=== PATIENT | female | born 1995 | race Caucasian/White ===

== ENCOUNTER 2023-09-17 06:13 | Emergency (ER) | payer BC, SELFPAY ==
[2023-09-17] VITALS (7 sets, daily range): BP systolic 96–134; BP diastolic 48–85; BMI 57.0
--- NOTE | 2023-09-17 06:59 | ED.GENMED ---
History of Present Illness
General
Chief Complaint: Back Pain
Source: patient
Exam Limitations: none
Time Seen by Provider: 09/17/23 06:53
Nursing documentation reviewed up to this point in time: agreed with
Travel History
Have you had any contact with someone who has COVID-19?: No
Do you have any symptoms of coronavirus? Fever > 100 degrees, chills, cough, shortness of breath, sore throat, loss of taste or smell, muscle aches, or headache?: No
History of Present Illness
History of Present Illness:
Patient is a 28-year-old female who presents to the emergency department complaining of severe back pain and lower abdominal pain similar to her kidney stones in the past with the last one being 2 years ago. Pain started yesterday. Patient's been
nauseous without vomiting. Patient denies any dysuria, hematuria, urgency or frequency. Patient has an IUD and denies . Patient denies fever or chills. Patient denies chest pain or shortness of breath. Patient denies any recent
illnesses or injuries.
Past History
Past History
ED Past Medical History: Other (Kidney stones)
Social History
Tobacco: Non-smoker
Review of Systems
Review of Systems
All Other Systems: ROS reviewed and negative except as documented in HPI and ROS
Constitutional: Reports chills; Denies fever or fatigue
EENT: Reports no symptoms
Respiratory: Reports no symptoms
Cardiac: Reports no symptoms
ABD/GI: Reports abdominal pain and nausea; Denies vomiting, diarrhea or constipated
: Reports flank pain; Denies dysuria, urgency, bleeding or dark urine
Musculoskeletal: Reports back pain
Skin: Reports no symptoms
Neurological: Reports no symptoms
Hematologic/Lymphatic: Reports no symptoms
Phy Exam
Physical Exam
Physical Exam:
Physical Exam
General: significant distress, alert and appropriate, morbidly obese, well hydrated
HENT: Normocephalic, supple with no lymphadenopathy, no thyromegaly
Eyes: Clear sclera, conjuctiva without injection
Heart: Regular rhythm and rate. No S3, S4. No murmur.
Lungs: No respiratory distress, no stridor, lung sounds clear and equal bilaterally
Abdomen: Soft, mild diffuse lower abdominal tenderness without guarding or rebound, no organomegaly, bilateral CVA tenderness, BS good
Neuro: Alert and oriented x 3, CN II - XII intact, no motor focality, no cerebellar dysfunction
Skin: no rash
Psychiatric: well kept. interactive and cooperative
Extremities: No edema, cyanosis, tenderness
Course
Orders/Labs/Results
Orders:
Orders
09/17/23 06:57
0.9% Sodium Chloride 1000 ml [Nss] 1,000 ml IV BOLUS
HYDROmorphone [Dilaudid] 1 mg IV NOW STA
Ketorolac [Toradol] 15 mg IV NOW STA
Ondansetron Injectable [Zofran] 4 mg IV NOW STA
Test Result ONCE
09/17/23 06:59
CT Abd/pel Without Iv Or Oral Urgent
Comment:
Reason For Exam: back and abd pain hx of kidney stones
09/17/23 07:12
Complete Blood Count/With Diff Urgent
Comprehensive Metabolic Panel Urgent
HCG, Serum Qualitative Screen Urgent
09/17/23 09:25
HYDROmorphone [Dilaudid] 1 mg IV NOW STA
09/17/23 10:50
Tamsulosin [Flomax] 0.4 mg PO NOW STA
09/17/23 10:55
Add On- LAB Urgent
Tests Added?: urinalysis
09/17/23 11:10
Urinalysis Routine
Urine Microscopic Routine
09/17/23 12:01
HYDROmorphone [Dilaudid] 1 mg IV NOW STA
Abnormal Lab Results
09/17/23 09/17/23
07:12 11:10
Absolute Monos (auto) 0.7 H 10^3/uL
(0.1-0.6)
Sodium 133 L mmol/L
(135-145)
Creatinine 0.4 L mg/dL
(0.6-1.0)
Urine Occult Blood 4+ A
(Negative)
Ur Leukocyte Esterase 2+ A
(Negative)
Urine RBC 7-10 A /HPF
(0-2)
Urine WBC 26-30 A /HPF
(0-5)
Urine Bacteria Many A
(Negative)
09/17/23 07:12
09/17/23 07:12
Vital Signs
Initial and Last Documented VS:
Initial Vital Signs
Temp Pulse Resp BP Pulse Ox
97.9 F 84 24 134/85 99
09/17/23 06:17 09/17/23 06:17 09/17/23 06:17 09/17/23 06:17 09/17/23 06:17
Last Documented Vital Signs
Temp Pulse Resp BP Pulse Ox
97.5 F 86 16 115/71 99
09/17/23 12:43 09/17/23 12:43 09/17/23 12:43 09/17/23 12:43 09/17/23 12:43
*Radiology
Radiology exam reviewed: radiology read reviewed
*Pulse Oximetry
Patient hypoxic: no
*EKG
Interpreted by ED Provider?: NA
*Field Professional Interpretation
Rate: Field Professional- N/A
*Critical Care Note
Total Time (30-74mins, 75-104mins- exclusive of procedures): Not Applicable
Update Note
Update Note:
Patient has a 3 mm proximal stone that should pass. Patient will be treated with Toradol, oxycodone, Zofran and Flomax. Urology will follow as an outpatient.
ED Attending Note
-
Portions of this chart may have been created with voice recognition software.� Occasional wrong word or��sound alike� substitutions may have occurred due to the inherent limitations of voice recognition software.
Discharge Plan
Departure
Patient Disposition: Home (Routine Discharge)
Date of Disposition: 09/17/23
Time of Disposition: 12:04
Patient with high blood pressure during this ER visit?: No
Condition: Fair
Covid-19: Not Applicable
Discharge Problem:
Renal colic, Ureterolithiasis
Instructions: Kidney Stones (DC), Renal Colic (DC), How to Strain Your Urine
Prescriptions:
New
ondansetron 8 mg tablet,disintegrating
8 mg PO TID PRN (Reason: nausea and vomiting) Qty: 20 0RF
ketorolac 10 mg tablet
10 mg PO QID PRN (Reason: pain) Qty: 20 0RF
tamsulosin [Flomax] 0.4 mg capsule
0.4 mg PO HS Qty: 10 0RF
oxycodone 5 mg tablet
5 mg PO Q4H PRN (Reason: Pain) Qty: 15 0RF
Referrals:
Clement Winston MD [Active] - Call in 1-3 days for appt
Dena Guerrero CRNP [Family Provider] - As needed
Interventions
Interventions:
*Risk Screen - Suicide Last Done: 09/17/23 07:14
*General Assessment Last Done: 09/17/23 06:17
*Neglect/Abuse Screening Last Done: 09/17/23 07:14
ED- Fall Risk Assessment Last Done: 09/17/23 07:14
*ED COVID-19 Vaccine History Last Done: 09/17/23 06:17
*Nursing Disposition Last Done: 09/17/23 12:43
ED-Musculoskeletal Assessment Last Done: 09/17/23 07:14
Discharge Date and Time
Discharge Date/Time: 09/17/23 12:44
Print Language: THAI
[2023-09-17] MEDS: ZOFRAN 4 MG IV (07:16)
[2023-09-17] MEDS: TORADOL 15 MG IV (07:17)
[2023-09-17] MEDS: DILAUDID 1 MG IV ×3 (07:17→12:21)
[2023-09-17] MEDS: NSS 1000 IV (07:18)
[2023-09-17 07:26] LABS: % Basophils 0.3 % (0-2); % Immature Granulocytes 0.4 % (0-0.5); % Lymphocytes 21.8 % (20.5-51.1); % Monocytes 7.3 % (1.7-9.3); % Neutrophils 67.2 % (42.2-75.2); Absolute Eosinophils 0.3 10^3/uL (0-0.7); Absolute Lymphocytes 2.1 10^3/uL (1.2-3.4); Absolute Monocytes 0.7 10^3/uL (0.1-0.6); Absolute Neutrophils 6.5 10^3/uL (1.4-6.5); Hematocrit 38.3 % (37.0-47.0); Hemoglobin 12.8 g/dL (12.0-16.0); Mean Corp Hgb Conc. 33.4 g/dL (33.0-37.0); Mean Corpuscular Hgb 27.7 pg (27.0-31.0); Mean Corpuscular Volume 82.9 fL (81.0-99.0); Mean Platelet Volume 8.6 fL (7.4-10.4); Nucleated Red Blood Cells % 0 %; Platelet Count 272 10^3/uL (130-400); Red Blood Cell Count 4.62 10^6/uL (4.20-5.40); White Blood Cell Count 9.7 10^3/uL (4.8-10.8)
[2023-09-17 07:43] LABS: ALT (SGPT) 31 U/L (0-35); AST (SGOT) 36 U/L (14-36); Albumin 3.8 g/dl (3.5-5.0); Alkaline Phosphatase 122 U/L (38-126); Blood Urea Nitrogen 7 mg/dl (7-17); Calcium 9.9 mg/dl (8.4-10.2); Carbon Dioxide 22 mmol/L (22-30); Chloride 106 mmol/L (98-107); Estimated Creatinine Clearance > 125 ml/min; Glucose 91 mg/dl (70-99); Sodium 133 mmol/L (135-145); Total Bilirubin 0.9 mg/dl (0.2-1.3); Total Protein 6.7 g/dl (6.3-8.2); eGFR > 60.00
[2023-09-17 07:49] LABS: HCG, Serum Qualitative Screen Negative
--- NOTE | 2023-09-17 10:59 | EDRN ---
the pt is resting in stretcher in the lowest position, side rails up x1, HOB elevated, no s/s of distress, no c/o pain, will continue to monitor the pt closely
[2023-09-17 11:24] LABS: Urine Albumin Negative (Neg - Trace); Urine Bilirubin Negative (Negative); Urine Character Slightly Cloudy (Clear); Urine Color Yellow; Urine Glucose Negative (Negative); Urine Ketone Negative (Negative); Urine Leukocyte 2+ (Negative); Urine Nitrite Negative (Negative); Urine Occult Blood 4+ (Negative); Urine Urobilinogen Negative (Neg - 1+)
[2023-09-17] MEDS: FLOMAX 0.400000000000000022 MG PO (12:21)
[2023-09-17 12:47] LABS: Urine Bacteria Many (Negative); Urine White Cell 26-30 /HPF (0-5)
== END 2023-09-17 12:44 | disposition home or self-care (01) ==
LOC: EMR 06:13
PROVIDERS: EMERGENCY PHYSICIAN Emergency Medicine; FAMILY PHYSICIAN Nurse Practitioner
DX: N20.1 Calculus of ureter (principal)
CPT/HCPCS: 99284; 96374; 96375 ×2; 96361; 96376 ×2; 74176; 80053; 81003; 81015; 84703; 85025

== ENCOUNTER 2023-09-18 23:42 | Inpatient (IN) | payer BC, SELFPAY ==
[2023-09-18 19:19] VITALS: BP 148/100
[2023-09-18 19:34] LABS: % Basophils 0.2 % (0-2); % Eosinophils 2.5 % (0-6); % Immature Granulocytes 0.3 % (0-0.5); % Lymphocytes 27.8 % (20.5-51.1); % Monocytes 7.5 % (1.7-9.3); % Neutrophils 61.7 % (42.2-75.2); Absolute Eosinophils 0.2 10^3/uL (0-0.7); Absolute Lymphocytes 2.7 10^3/uL (1.2-3.4); Absolute Monocytes 0.7 10^3/uL (0.1-0.6); Hematocrit 37.1 % (37.0-47.0); Hemoglobin 12.5 g/dL (12.0-16.0); Mean Corp Hgb Conc. 33.7 g/dL (33.0-37.0); Mean Corpuscular Hgb 27.5 pg (27.0-31.0); Mean Corpuscular Volume 81.5 fL (81.0-99.0); Mean Platelet Volume 8.5 fL (7.4-10.4); Nucleated Red Blood Cells % 0 %; Platelet Count 283 10^3/uL (130-400); Red Blood Cell Count 4.55 10^6/uL (4.20-5.40); Red Cell Dist. Width 13.1 % (11.5-14.5); White Blood Cell Count 9.7 10^3/uL (4.8-10.8)
--- NOTE | 2023-09-18 19:46 | ED.GENMED ---
History of Present Illness
General
Chief Complaint: Flank Pain
Source: patient
Exam Limitations: none
Time Seen by Provider: 09/18/23 19:42
Nursing documentation reviewed up to this point in time: agreed with
Travel History
Have you had any contact with someone who has COVID-19?: No
Do you have any symptoms of coronavirus? Fever > 100 degrees, chills, cough, shortness of breath, sore throat, loss of taste or smell, muscle aches, or headache?: No
History of Present Illness
History of Present Illness:
28 y/o F with h/o kidney stone previously and was here yesterday wth b/l flank pain/abdominal pain and was diagnosed with a R proximal UPJ stone 3 mm
d/c with pain meds, flomax, toradol, oxycodone, zofran
pt has been having pain incresing throughout the day
she thinks she took 2-3 dose of oxy and 2 doses of toradol
has not passed the stone
has pressure and burning with urination
no fever, chill, vomiting, lethargy
pt is writhing in pain
Past History
Past History
ED Past Medical History: Other (Kidney stones)
Social History
Tobacco: Non-smoker
Review of Systems
Review of Systems
Allergies reviewed?: Yes
All Other Systems: Not applicable
Phy Exam
Physical Exam
Physical Exam:
GENERAL: Alert, uncomfortable, writhing, yelling out in pain
Neck: supple
CARDIAC: Regular rate and rhythm .
LUNGS: Clear breath sounds bilaterally, no acute respiratory distress, no wheezes/rales/rhonchi
ABDOMEN:obese, soft, diffusely tender
b/l cvat tnedneress
NEUROLOGICAL: Alert and oriented, no focal neuro deficits
SKIN: Warm and dry, skin intact.
PSYCH: Normal and appropriate interaction.
Course
Orders/Labs/Results
Orders:
Orders
09/18/23 Dinner
Regular
At Your Request: Full Participation
09/18/23 19:27
Complete Blood Count/With Diff Urgent
Comprehensive Metabolic Panel Urgent
09/18/23 19:50
0.9% Sodium Chloride 1000 ml [Nss] 1,000 ml IV BOLUS
HYDROmorphone [Dilaudid] 1 mg IV NOW STA
Ketorolac [Toradol] 15 mg IV NOW STA
09/18/23 19:51
CT Abd/pel Without Iv Or Oral Urgent
Comment:
Reason For Exam: R kidney ston but now b/l flank pain
09/18/23 20:35
HYDROmorphone [Dilaudid] 1 mg IV NOW STA
09/18/23 21:35
HYDROmorphone [Dilaudid] 1 mg .ROUTE .STK-MED ONE
09/18/23 23:04
CefTRIAXone [Rocephin] 1,000 mg IV NOW STA
09/18/23 23:05
Morphine Sulfate 4 mg IV NOW STA
09/18/23 23:16
Admit/Transfer Patient As Directed
Co-Sign Provider:
Level of Care: Inpatient admission
Assign to:: Medical/Surgical
Physician / Group: aurelia
Diagnosis: obstructive nephrolithiasis
Reason for Hospitalization: obstructive nephrolithiasis
Expected length of stay greater than two midnights?: Yes
ELOS- Estimated Length of Stay in days: 2
I certify the patient meets the requirements for IP care: Yes
09/18/23 23:17
Code Status As Directed
Resuscitation Status: Full Code
09/18/23 23:19
UROLOGY CONSULT Routine
Consulting Provider: Carlos Nevarez
Was physician already notified: Yes
09/18/23 23:21
Urinalysis Reflex To Culture Urgent
Date Specimen was Collected: 09/18/23
Time Specimen was Collected: 23:05
Urine Microscopic Reflex Cult Urgent
Urine Culture Urgent
BOLA Source: U
Specimen Description:
Date Specimen was Collected: 09/18/23
Time Specimen was Collected: 23:05
09/18/23 23:55
0.9% Sodium Chloride 1000 ml [Nss] 1,000 ml IV 120 mls/hr
HYDROmorphone [Dilaudid] 0.5 mg IV Q4HPRN PRN
HydrOXYZINE [Atarax] 10 mg PO TID PRN
Ketorolac [Toradol] 10 mg IV Q6HPRN PRN
Ondansetron Injectable [Zofran] 4 mg IV Q6HPRN PRN
09/18/23 23:55
Activity As Directed
Activity Level: As Tolerated
Pneumatic Compression Sleeves As Directed
Type: Knee high
Vital Signs As Directed
Frequency: Per unit guidelines
DX Deep Vein Thrombosis Video Routine
09/19/23 Breakfast
NPO
Allow oral meds: Yes
Allow clear liquids: Sips of Clears
Complete Blood Count/With Diff IN AM
Comprehensive Metabolic Panel IN AM
09/19/23 08:00
Bupropion(24Hr)Extended Releas [WELLBUTRIN XL (24 hour extended release)] 150 mg PO DAILY
Ferrous Sulfate [Feosol] 650 mg PO DAILY
Multivitamin [Theragran] 1 tablet PO DAILY
Sertraline HCl [Zoloft] 200 mg PO DAILY
09/19/23 22:00
CefTRIAXone [Rocephin] 1,000 mg IV Q24H
Prazosin HCl [Minipress] 2 mg PO HS
Sterile Water [Sterile Water For Injection] 10 ml IV Q24H
Tamsulosin [Flomax] 0.4 mg PO HS
Abnormal Lab Results
04/01/24 04/01/24
19:27 23:21
Absolute Monos (auto) 0.7 H 10^3/uL
(0.1-0.6)
Sodium 134 L mmol/L
(135-145)
Chloride 109 H mmol/L
(98-107)
Carbon Dioxide 19 L mmol/L
(22-30)
Alkaline Phosphatase 136 H U/L
(38-126)
Urine Ketones Trace A
(Negative)
Ur Occult Blood Reflex 1+ A
(Negative)
Leukocyte Esterase Rfl 2+ A
(Negative)
Urine WBC (Reflex) >100 A /HPF
(0-5)
Urine Bacteria (Reflex) Many A
(Negative)
09/18/23 19:27
09/18/23 19:27
Vital Signs
Initial and Last Documented VS:
Initial Vital Signs
Temp Pulse Resp BP Pulse Ox
97.7 F 92 16 148/100 98
09/18/23 19:19 09/18/23 19:19 09/18/23 19:19 09/18/23 19:19 09/18/23 19:19
Last Documented Vital Signs
Temp Pulse Resp BP Pulse Ox
99.1 F 89 16 112/63 98
09/18/23 23:18 09/18/23 23:18 09/18/23 19:19 09/18/23 23:18 09/18/23 23:18
MDM/Problems Addressed
Differential Diagnosis Includes:
flank pain, renal colic, infected stone
MDM/Problems Addressed:
28 y/o F yesterday seen for abd/back pain, ct showing R sided prox UPJ 3 mm stone, urine from yesterday with wbc, bacteria; wbc normal, bp stable, no fever;d/c yesterday with oral toradol, oxy, flomax, zofran and was uncomfortable requiring multiple
doses IV pain meds; ct is unchanged from yesterday; urologist dr. nevarez aware.
iv abx given.
*Critical Care Note
Total Time (30-74mins, 75-104mins- exclusive of procedures): Not Applicable
ED Attending Note
-
Portions of this chart may have been created with voice recognition software.� Occasional wrong word or��sound alike� substitutions may have occurred due to the inherent limitations of voice recognition software.
Discharge Plan
Departure
Patient Disposition: Admit
Date of Disposition: 09/18/23
Time of Disposition: 23:03
Admit to: Med/Surg
Presentation/result/management discussed w/ accepting MD/DO: Hospitalist
Covid-19: Not Applicable
Discharge Problem:
Ureterolithiasis
Interventions
Interventions:
*Risk Screen - Suicide Last Done: 09/18/23 23:23
*General Assessment Last Done: 09/18/23 23:23
*Neglect/Abuse Screening Last Done: 09/18/23 23:23
*ED COVID-19 Vaccine History Last Done: 09/18/23 19:19
LE-Kuazjp-Bjedtxkqyy Assessment Last Done: 09/18/23 22:29
ED-Female Genitourinary Assessment Last Done: 09/18/23 23:23
[2023-09-18 19:52] LABS: ALT (SGPT) 28 U/L (0-35); AST (SGOT) 33 U/L (14-36); Albumin 3.8 g/dl (3.5-5.0); Alkaline Phosphatase 136 U/L (38-126); Blood Urea Nitrogen 11 mg/dl (7-17); Carbon Dioxide 19 mmol/L (22-30); Chloride 109 mmol/L (98-107); Glucose 95 mg/dl (70-99); Potassium 4.3 mmol/L (3.5-5.1); Sodium 134 mmol/L (135-145); Total Bilirubin 0.6 mg/dl (0.2-1.3); Total Protein 6.6 g/dl (6.3-8.2); eGFR > 60.00
[2023-09-18] MEDS: DILAUDID 1 MG IV ×2 (20:22→20:42)
[2023-09-18] MEDS: TORADOL 15 MG IV (20:22)
[2023-09-18] MEDS: NSS 1000 IV (20:27)
[2023-09-18 20:44] VITALS: BMI 59.5
[2023-09-18 21:00] VITALS: BP 110/64
[2023-09-18] MEDS: MORPHINE SULFATE 4 MG IV (23:15)
[2023-09-18] MEDS: ROCEPHIN 1000 MG IV (23:15)
[2023-09-18 23:18] VITALS: BP 112/63
--- NOTE | 2023-09-18 23:20 | HPS.HSE ---
Family Physician
-
Family Physician: CARLOS Wilhelm
Chief Complaint
-
right flank pain
History of Present Illness
28-year-old female with past medical history of kidney stones, anxiety/depression presented to emergency room for severe right lower back pain radiating down to her right groin similar to kidney stones in the past, last being 2 years ago. Pain
started 2 days ago. She had nausea without vomiting. She did have burning with urination.. No fevers or chills. No chest pain or shortness of breath. She came to the emergency room yesterday and was found to have 3 mm calculus in the right
uteropelvic junction. She was given IV fluids and pain control, tamsulosin and discharged home.
She states last time 2 years ago she had a 6 mm stone that took a month to pass on its own.
She is back in for similar symptoms today.
Denies smoking alcohol.
Medical History
Past Medical History
Past Medical History: Reports Other (kidney stones, anxiety/depression)
Past Surgical History: Reports None
Social History
Tobacco: Non-smoker
Alcohol: None
Drug: None
Family History
Family History: Not pertinent
Allergies / Home Medications
Allergies reflects when Allergies were last updated in [facility].
Home Medications with original date entered in [facility]
Allergy/Medication List:
Allergies
Allergy/AdvReac Type Severity Reaction Status Date / Time
No Known Allergies Allergy Verified 09/18/23 19:21
Home Medications
ondansetron 8 mg disintegrating tablet 8 mg PO TID PRN nausea and vomiting #20 tabs 09/17/23
tamsulosin 0.4 mg capsule (Flomax) 0.4 mg PO HS #10 caps 09/17/23
bupropion HCl 150 mg 24 hr tablet, extended release 150 mg PO DAILY 09/18/23
ferrous sulfate 325 mg (65 mg iron) tablet 650 mg PO DAILY 09/18/23
hydroxyzine HCl 10 mg tablet 10 mg PO TID PRN anxiety 09/18/23
ketorolac 10 mg tablet 10 mg PO QID PRN mild pain 09/18/23
multivitamin 1 tab PO DAILY 09/18/23
oxycodone 5 mg tablet 5 mg PO Q4H PRN Moderate Pain 09/18/23
prazosin 2 mg capsule 2 mg PO HS 09/18/23
sertraline 100 mg tablet 200 mg PO DAILY 09/18/23
Review of Systems
-
History Source: Patient
A 12 point ROS was completed and negative except as noted: Yes
Constitutional: Reports No Symptoms
EENT: Reports No Symptoms
Respiratory: Reports No Symptoms
Cardiac: Reports No Symptoms
Abdomen/GI: Reports See HPI
: Reports See HPI
Musculoskeletal: Reports No Symptoms
Skin: Reports No Symptoms
Neurological: Reports No Symptoms
Endocrine: Reports No Symptoms
Hematologic/Lymphatic: Reports No Symptoms
Psych: Reports No Symptoms
Physical Exam
Vital Signs
Vital Signs
Temp Pulse Resp BP Pulse Ox
97.7 F 79 16 110/64 97
09/18/23 19:19 09/18/23 22:55 09/18/23 19:19 09/18/23 21:00 09/18/23 22:55
Physical Exam
General: Well Developed, Well Nourished and No Apparent Distress
HEENT: NormoCephalic, Moist mucous membranes and Atraumatic
Respiratory: Clear
Cardiac: S1/S2 and Regular Rhythm; No Murmur or Rub
GI: Soft, Non Tender, Non Distended and Normal Bowel Sounds; No Organomegaly
Rectal: Deferred by Provider
Genito-urinary: Costovertebral angle tend (right CVA tenderness )
Musculoskeletal: No Clubbing, No Cyanosis and No Edema
Skin: No Rash
Neuro: Nonfocal/grossly intact
Laboratory Results
-
09/18/23 19:27
09/18/23 19:27
Laboratory Results
Total Bilirubin 0.6 mg/dl (0.2-1.3) 09/18/23 19:27
AST 33 U/L (14-36) 09/18/23 19:27
ALT 28 U/L (0-35) 09/18/23 19:27
Alkaline Phosphatase 136 U/L (38-126) H 09/18/23 19:27
Data Reviewed
-
Lab Data: Labs Reviewed by me
Old Records: Reviewed
Impression/Plan
-
IMPRESSION:
PLAN:
# Right ureteropelvic junction 3 mm calculus
# History of kidney stones
-CT today unchanged from yesterday which showed 3 mm calculus at the right ureteropelvic junction, slight distention of the renal pelvis without significant caliectasis
-IV fluids
-Continue tamsulosin
-Urinalysis from yesterday suggesting infection, rechecking today
-Zofran for nausea
-Toradol, Dilaudid for pain
-Ceftriaxone
-N.p.o. past midnight
-Urology consult
Anxiety/depression
-Continue bupropion, prazosin, sertraline
Full code
DVT prophylaxis�SCDs
N.p.o. past midnight
[2023-09-18 23:35] LABS: Urine Albumin Trace (Neg - Trace); Urine Bilirubin Negative (Negative); Urine Character Slightly Cloudy (Clear); Urine Color Yellow; Urine Glucose Negative (Negative); Urine Ketone Trace (Negative); Urine Leukocyte 2+ (Negative); Urine Nitrite Negative (Negative); Urine Occult Blood 1+ (Negative); Urine Urobilinogen Negative (Neg - 1+)
[2023-09-18 23:42] VITALS: BMI 59.5
[2023-09-19] LABS: Urine Amorphous Seen; Urine Bacteria Many (Negative); Urine Mucus Moderate; Urine Squamous Cell >30 /LPF (Few); Urine White Cell >100 /HPF (0-5)
[2023-09-19] MEDS: NSS 1000 IV ×3 (00:08→17:06)
[2023-09-19] MEDS: DILAUDID 0.5 MG IV ×5 (02:27→19:55)
[2023-09-19 03:55] VITALS: BP 122/78
[2023-09-19] MEDS: TORADOL 10 MG IV (05:55)
[2023-09-19 06:23] LABS: % Basophils 0.3 % (0-2); % Eosinophils 3.8 % (0-6); % Immature Granulocytes 0.5 % (0-0.5); % Lymphocytes 32.1 % (20.5-51.1); % Monocytes 7.5 % (1.7-9.3); % Neutrophils 55.8 % (42.2-75.2); Absolute Eosinophils 0.2 10^3/uL (0-0.7); Absolute Monocytes 0.5 10^3/uL (0.1-0.6); Absolute Neutrophils 3.5 10^3/uL (1.4-6.5); Hematocrit 34.2 % (37.0-47.0); Hemoglobin 11.2 g/dL (12.0-16.0); Mean Corp Hgb Conc. 32.7 g/dL (33.0-37.0); Mean Corpuscular Hgb 27.9 pg (27.0-31.0); Mean Corpuscular Volume 85.3 fL (81.0-99.0); Mean Platelet Volume 8.7 fL (7.4-10.4); Nucleated Red Blood Cells % 0 %; Platelet Count 233 10^3/uL (130-400); Red Blood Cell Count 4.01 10^6/uL (4.20-5.40); Red Cell Dist. Width 13.1 % (11.5-14.5); White Blood Cell Count 6.2 10^3/uL (4.8-10.8)
[2023-09-19 06:53] LABS: ALT (SGPT) 24 U/L (0-35); AST (SGOT) 30 U/L (14-36); Alkaline Phosphatase 106 U/L (38-126); Blood Urea Nitrogen 10 mg/dl (7-17); Carbon Dioxide 23 mmol/L (22-30); Chloride 112 mmol/L (98-107); Estimated Creatinine Clearance > 125 ml/min; Glucose 98 mg/dl (70-99); Potassium 3.9 mmol/L (3.5-5.1); Sodium 136 mmol/L (135-145); Total Bilirubin 0.4 mg/dl (0.2-1.3); Total Protein 5.5 g/dl (6.3-8.2); eGFR > 60.00
[2023-09-19 07:01] VITALS: BP 126/62
--- NOTE | 2023-09-19 07:30 | CONS.URO ---
Consultation
-
Date/Time Consultation Performed: 09/19/23 0650
Performing Provider: Erlin Crowder
Reason for Consultation: right ureteral stone
Medical History
History of Present Illness
Right-sided abdominal pain started 2 days ago with nausea, without vomiting. No fevers or chills. She came to the ED on 09/17/23: CT demonstrated a 5-6 mm calculus at the right uteropelvic junction. She was given IV fluids and pain control,
tamsulosin then discharged home. She returned during the late evening of 09/18/23 due to intractable pain. She has been admitted to hospitalists' service
Past Medical History
Past Medical History: Psychiatric (anxiety-depression) and Other (morbid obesity; kidney stone -- spontaneously passed 5 mm stone ~ 2 years ago)
Past Surgical History: None
Family History
Family History: Reviewed & Not Pertinent
Allergies/Home Medications
Allergies
Allergy/AdvReac Type Severity Reaction Status Date / Time
No Known Allergies Allergy Verified 09/18/23 19:21
Home Medications
�Medication �Instructions �Recorded �Confirmed �Type
ondansetron 8 mg disintegrating 8 mg PO TID PRN nausea and 09/17/23 09/18/23 Rx
tablet vomiting #20 tabs
tamsulosin 0.4 mg capsule (Flomax) 0.4 mg PO HS #10 caps 09/17/23 09/18/23 Rx
bupropion HCl 150 mg 24 hr tablet, 150 mg PO DAILY 09/18/23 09/18/23 History
extended release
ferrous sulfate 325 mg (65 mg 650 mg PO DAILY 09/18/23 09/18/23 History
iron) tablet
hydroxyzine HCl 10 mg tablet 10 mg PO TID PRN anxiety 09/18/23 09/18/23 History
ketorolac 10 mg tablet 10 mg PO QID PRN mild pain 09/18/23 09/18/23 History
multivitamin 1 tab PO DAILY 09/18/23 09/18/23 History
oxycodone 5 mg tablet 5 mg PO Q4H PRN Moderate Pain 09/18/23 09/18/23 History
prazosin 2 mg capsule 2 mg PO HS 09/18/23 09/18/23 History
sertraline 100 mg tablet 200 mg PO DAILY 09/18/23 09/18/23 History
Physical Exam
Vital Signs
Vital Signs
Temp Pulse Resp BP Pulse Ox
98.2 F 63 16 126/62 100
09/19/23 07:01 09/19/23 07:01 09/19/23 07:01 09/19/23 07:01 09/19/23 07:01
Lab / Testing Results
Laboratory Results
09/19/23 06:00
09/19/23 06:00
Physical Exam
General: No Apparent Distress and Other (morbidly obese)
HEENT: Normocephalic
Genito-urinary: No Costovertebral Tend
Skin: Warm
Neuro: Awake and Alert
Psych: Calm
Assessment / Plan
-
Right Ureteral Calculus: 5-6 mm, proximal; left renal stone -- 3 mm
Posted for OR 4/3 during AM
Data Reviewed
-
CT Scan: Image personally visualized and interpreted
Lab Data: Labs Reviewed
Old Records: Reviewed
[2023-09-19] MEDS: WELLBUTRIN XL (24 hour extended release) 150 MG PO (08:48)
[2023-09-19] MEDS: FEOSOL 650 MG PO (08:48)
[2023-09-19] MEDS: THERAGRAN 1 TABLET PO (08:48)
[2023-09-19] MEDS: ZOLOFT 200 MG PO (08:49)
--- NOTE | 2023-09-19 10:56 | W.PN.HOSP.TC ---
Today's Communication/Plan
-
monitor vitals
see plan
cw CFTX
follow urine cx
IVF
pain control
NPO tomorrow for OR by urology
Assessment / Plan
Assessment / Plan
General: Well Developed, Well Nourished and No Apparent Distress
HEENT: NormoCephalic, Moist mucous membranes and Atraumatic
Respiratory: Clear
Cardiac: S1/S2 and Regular Rhythm
GI: Soft, Non Tender, Non Distended and Normal Bowel Sounds; No Organomegaly
Genito-urinary: Costovertebral angle tend (right CVA tenderness )
Musculoskeletal: No Clubbing, No Cyanosis and No Edema
Neuro: Nonfocal/grossly intact
Right ureteropelvic junction 3 mm calculus
Associated UTI 2/2 stone
# History of kidney stones
-CT showed 3 mm calculus at the right ureteropelvic junction, slight distention of the renal pelvis without significant caliectasis
-IV fluids
-Continue tamsulosin
-Urinalysis from yesterday suggesting infection, rechecking today
-Zofran for nausea
-pain control
-Ceftriaxone; follow urine cx
-N.p.o. past midnight
-Urology following; plan for OR 4/3
Anxiety/depression
-Continue bupropion, prazosin, sertraline
Full code
DVT prophylaxis�SCDs
Anticipated Discharge: 24 - 48 hours
Subjective/Interval History
-
Date of Service: September 19, 2023
Does have right flank pain
Objective Data
-
Labs:
Laboratory Results
09/19/23
06:00
WBC 6.2
Hgb 11.2 L
Hct 34.2 L
Plt Count 233
Sodium 136
Potassium 3.9
Chloride 112 H
Carbon Dioxide 23
BUN 10
Creatinine 0.6
Glucose 98
Calcium 9.0
Total Bilirubin 0.4
AST 30
ALT 24
Alkaline Phosphatase 106
Vital Signs:
Vital Signs
Temp Pulse Resp BP Pulse Ox
98.2 F 63 16 126/62 100
09/19/23 07:01 09/19/23 07:01 09/19/23 07:01 09/19/23 07:01 09/19/23 07:01
[2023-09-19] MEDS: TORADOL 15 MG IV ×3 (12:06→23:36)
[2023-09-19 15:16] VITALS: BP 119/69; BMI 58.2
--- NOTE | 2023-09-19 15:19 | CM ---
CM met with patient in room. Patient confirmed demographics. Patient had a history of VN for post- check. Patient denies history of SNF or VN. Patient uses [facility] for medication services. Patient is active with her PCP>
PLAN: Home no needs.
--- NOTE | 2023-09-19 16:04 | PTCARENOTE ---
Arrived to unit and ambulated to room. Oriented to room. Call barnes within reach.
[2023-09-19] MEDS: LOVENOX 40 MG SC (17:05)
[2023-09-19] MEDS: ZOFRAN 4 MG IV (20:54)
[2023-09-19] MEDS: MINIPRESS 2 MG PO (21:12)
[2023-09-19] MEDS: FLOMAX 0.400000000000000022 MG PO (21:12)
[2023-09-19] MEDS: STERILE WATER FOR INJECTION 10 ML IV (21:20)
[2023-09-19] MEDS: ROCEPHIN 1000 MG IV (21:20)
[2023-09-19 23:55] VITALS: BP 134/65
[2023-09-20] VITALS (13 sets, daily range): BP systolic 119–149; BP diastolic 67–83
[2023-09-20] MEDS: DILAUDID 0.5 MG IV ×5 (03:22→18:35)
[2023-09-20] MEDS: ZOFRAN 4 MG IV ×2 (03:27→11:48)
[2023-09-20] MEDS: TORADOL 15 MG IV (05:19)
[2023-09-20 06:01] LABS: % Basophils 0.4 % (0-2); % Eosinophils 3.6 % (0-6); % Immature Granulocytes 0.4 % (0-0.5); % Lymphocytes 35.3 % (20.5-51.1); % Monocytes 7.6 % (1.7-9.3); % Neutrophils 52.7 % (42.2-75.2); Absolute Eosinophils 0.2 10^3/uL (0-0.7); Absolute Monocytes 0.4 10^3/uL (0.1-0.6); Absolute Neutrophils 2.9 10^3/uL (1.4-6.5); Hematocrit 37.3 % (37.0-47.0); Hemoglobin 11.6 g/dL (12.0-16.0); Mean Corp Hgb Conc. 31.1 g/dL (33.0-37.0); Mean Corpuscular Hgb 27.1 pg (27.0-31.0); Mean Corpuscular Volume 87.1 fL (81.0-99.0); Mean Platelet Volume 8.7 fL (7.4-10.4); Nucleated Red Blood Cells % 0 %; Platelet Count 234 10^3/uL (130-400); Red Blood Cell Count 4.28 10^6/uL (4.20-5.40); Red Cell Dist. Width 13.3 % (11.5-14.5); White Blood Cell Count 5.6 10^3/uL (4.8-10.8)
[2023-09-20 06:34] LABS: Blood Urea Nitrogen 10 mg/dl (7-17); Calcium 9.3 mg/dl (8.4-10.2); Carbon Dioxide 22 mmol/L (22-30); Chloride 108 mmol/L (98-107); Estimated Creatinine Clearance > 125 ml/min; Glucose 84 mg/dl (70-99); Sodium 136 mmol/L (135-145); eGFR > 60.00
[2023-09-20] MEDS: NSS 1000 IV (07:21)
[2023-09-20] MEDS: WELLBUTRIN XL (24 hour extended release) 150 MG PO (07:52)
[2023-09-20] MEDS: THERAGRAN 1 TABLET PO (07:52)
[2023-09-20] MEDS: FEOSOL 650 MG PO (07:52)
[2023-09-20] MEDS: ZOLOFT 200 MG PO (07:53)
--- NOTE | 2023-09-20 11:09 | W.SUR.PREOP ---
Pre-Operative Surgical Note
-
I have examined this patient prior to the performance of the scheduled procedure.
The patient's condition is unchanged from the time of the current History and
Physical and the patient is able to undergo the scheduled procedure.
--- NOTE | 2023-09-20 11:09 | W.IMMPOSTOP ---
Surgical Immed Post Op Note
-
Primary Surgeon: Erlin
Pre-op Diagnosis: Right Ureteral calculus
Post-op Diagnosis: Right Ureteral calculus
Procedure Performed: Right Ureteroscopy, Laser Lithotripsy, Stenting
Anesthesia Type: gen
Specimen / Cultures: none
Estimated Blood Loss: none
Complications: none
Operative Findings: 5-6 mm impacted/obstructing proximal right ureteral stone
Tubes: 4.7 Fr 24 cm JJ right ureteral stent
--- NOTE | 2023-09-20 11:35 | W.PN.HOSP.TC ---
Today's Communication/Plan
-
Await urine culture susceptibility results
urology recs
Restart diet.
Assessment / Plan
Assessment / Plan
General: Well Developed, Well Nourished and No Apparent Distress, morbidly obese
HEENT: NormoCephalic, Moist mucous membranes and Atraumatic
Respiratory: Clear
Cardiac: S1/S2 and Regular Rhythm
GI: Soft, Non Tender, Non Distended and Normal Bowel Sounds; No Organomegaly
Genito-urinary: Costovertebral angle tend (right CVA tenderness )
Musculoskeletal: No Clubbing, No Cyanosis and No Edema
Neuro: Nonfocal/grossly intact
Right ureteropelvic junction 3 mm obstructed renal calculus
Associated E. coli UTI 2/2 stone
# History of kidney stones
-CT showed 3 mm calculus at the right ureteropelvic junction, slight distention of the renal pelvis without significant caliectasis
-IV fluids
-Continue tamsulosin
-Urinalysis from yesterday suggesting infection, rechecking today
-Zofran for nausea
-pain control
-Ceftriaxone; follow urine susceptibility results
-OP finding of impacted/obstructive proximal right ureteral stone. Status post right ureteroscopy, laser lithotripsy and stenting.
Anxiety/depression/PTSD
-Continue bupropion, prazosin, sertraline
Morbid obesity due to excess calories
Plan all aspects of medical care
Full code
DVT prophylaxis�SCDs
Anticipated Discharge: 24 - 48 hours
Subjective/Interval History
-
Date of Service: September 20, 2023
states of flank pain
Objective Data
-
Labs:
Laboratory Results
09/20/23
05:35
WBC 5.6
Hgb 11.6 L
Hct 37.3
Plt Count 234
Sodium 136
Potassium 4.0
Chloride 108 H
Carbon Dioxide 22
BUN 10
Creatinine 0.5 L
Glucose 84
Calcium 9.3
Vital Signs:
Vital Signs
Temp Pulse Resp BP Pulse Ox
97.5 F 85 23 135/67 99
09/20/23 07:05 09/20/23 11:30 09/20/23 11:30 09/20/23 11:17 09/20/23 11:30
I&O
09/19/23 09/20/23 09/21/23
06:59 06:59 06:59
Intake Total 240 / 240
Output Total 700 / 700
Balance -460 / -460
[2023-09-20] MEDS: Pyridium 200 MG PO (11:43)
[2023-09-20] MEDS: TORADOL IV (12:20)
[2023-09-20] MEDS: NSS (PRESERVATIVE FREE) 8 ML IV (12:33)
[2023-09-20] MEDS: PEPCID 20 MG IV (12:33)
--- NOTE | 2023-09-20 13:23 | PTCARENOTE ---
Pt returned from PACU.Report from RN.Pt awake slightly drowsy, Pt VSS 95% on RA. Pt c/o burning in chest describes it as acid refux, given IV Pepcid with relief. Pt OOB to [facility] urinated pink urine, c/o back spasms and pain after standing, given IV
Dilaudid per orders. Pt reoriented to room, at bedside, taking in liquids and tolerating food at this time, plan of care ongoing.
[2023-09-20] MEDS: TORADOL 30 MG IV ×2 (16:48→21:30)
[2023-09-20] MEDS: LOVENOX 40 MG SC (16:53)
[2023-09-20] MEDS: ATARAX 10 MG PO (17:56)
--- NOTE | 2023-09-20 19:19 | PTCARENOTE ---
Pt called RN into room c/o feeling like her heart as racing, numbness in arms, legs, face. Pt c/o abd discomfort and back spasms. Pt very anxious tearful moaning out loudly in room. EKG completed, VSS, Pt given dilaudid per orders and Atarax for
anxiety. Pt still uncomfortable, moaning loudly, tearful. Cross covering MD into evaluate pt. Pt given an extra 0.5mg Dilaudid, Pt requesting something to eat, Pt OOB to [facility] Urinating without difficultly. Pt said pain is more tolerable 1-2, VSS,
Call barnes within reach, plan of care ongoing.
[2023-09-20] MEDS: FLOMAX 0.400000000000000022 MG PO (21:16)
[2023-09-20] MEDS: MINIPRESS 2 MG PO (21:26)
[2023-09-20] MEDS: STERILE WATER FOR INJECTION 10 ML IV (21:27)
[2023-09-20] MEDS: ROCEPHIN 1000 MG IV (21:27)
[2023-09-21 03:08] VITALS: BP 129/82
[2023-09-21] MEDS: TORADOL 30 MG IV ×2 (04:14→10:17)
[2023-09-21] MEDS: ZOFRAN 4 MG IV (05:26)
[2023-09-21 07:30] VITALS: BP 134/67
[2023-09-21] MEDS: FEOSOL 650 MG PO (08:14)
[2023-09-21] MEDS: ZOLOFT 200 MG PO (08:16)
[2023-09-21] MEDS: WELLBUTRIN XL (24 hour extended release) 150 MG PO (08:16)
[2023-09-21] MEDS: THERAGRAN 1 TABLET PO (08:16)
--- NOTE | 2023-09-21 10:36 | W.PN.HOSP.TC ---
Today's Communication/Plan
-
DC with p.o. antibiotics
Outpatient urology follow-up for stent removal
Assessment / Plan
Assessment / Plan
General: Well Developed, Well Nourished and No Apparent Distress, morbidly obese
HEENT: NormoCephalic, Moist mucous membranes and Atraumatic
Respiratory: Clear
Cardiac: S1/S2 and Regular Rhythm
GI: Soft, Non Tender, Non Distended and Normal Bowel Sounds; No Organomegaly
Musculoskeletal: No Clubbing, No Cyanosis and No Edema
Neuro: Nonfocal/grossly intact
Right ureteropelvic junction 3 mm obstructed renal calculus
Associated E. coli UTI 2/2 stone
# History of kidney stones
-CT showed 3 mm calculus at the right ureteropelvic junction, slight distention of the renal pelvis without significant caliectasis
-IV fluids discontinued.
-Continue tamsulosin
-Zofran for nausea
-pain control
-Ceftriaxone; follow urine susceptibility results pansensitive. Switch to p.o. Keflex
-OP finding of impacted/obstructive proximal right ureteral stone. Status post right ureteroscopy, laser lithotripsy and stenting.
Anxiety/depression/PTSD
-Continue bupropion, prazosin, sertraline
Morbid obesity due to excess calories
Plan all aspects of medical care
Full code
DVT prophylaxis�SCDs
More than 30 minutes spent in discharge including
Final examination of the patient
Summarizing hospital stay
Instructions for continuing care to all relevant caregivers
Preparation of discharge records, prescriptions, and referral forms
Total time spent (in minutes): 50
Anticipated Discharge: Today
Subjective/Interval History
-
Date of Service: September 21, 2023
Patient feeling better this morning
Denies any spasms
Hypothyroid progress.
Objective Data
-
Vital Signs:
Vital Signs
Temp Pulse Resp BP Pulse Ox
97.9 F 80 18 134/67 96
09/21/23 07:30 09/21/23 07:30 09/21/23 07:30 09/21/23 07:30 09/21/23 07:30
I&O
09/20/23 09/21/23 09/22/23
06:59 06:59 06:59
Intake Total 240 / 240 2100 / 2100
Output Total 700 / 700 2450 / 2450
Balance -460 / -460 -350 / -350
--- NOTE | 2023-09-21 10:48 | W.DCSUMMARY ---
Discharge Summary
Discharge Data
Date of Admission: 09/18/23
Date of Discharge: 09/21/23
-
Pending Results: No
Hospital Course
28-year-old female past medical history of anxiety, depression, PTSD, morbid obesity due to excess calories was presented with right flank pain. Patient underwent CT abdomen which showed CT showed 3 mm calculus at the right ureteropelvic junction,
slight distention of the renal pelvis without significant caliectasis patient was started on IV fluids. IV antibiotics were started. Patient was evaluated urology and patient went to the operating room. OP finding of impacted/obstructive proximal
right ureteral stone. Status post right ureteroscopy, laser lithotripsy and stenting. Patient urine culture came back positive for E. coli with glover sensitivity. Ceftriaxone was transitioned to p.o. Keflex. Patient will need to follow-up
outpatient for ureteral stent removal.
Discharge Plan
-
Patient Disposition: Home (Routine Discharge)
Discharge Diagnosis/Procedures: Right Ureteral Stone, s/o Ureteroscopy, Laser Lithotripsy and Stenting
E.coli UTI
Condition: Good
Diet: No restrictions and Low Fat
Activity: No restrictions
Driving Restrictions: No driving for 24 hours
Bathing Restrictions: None
Referrals:
Cralos Kern MD [Active] - (call to schedule 'stent removal next Monday [09/28]')
Dena Guerrero CRNP [Family Provider] - in less than 1 week
Prescriptions:
New
cephalexin 500 mg capsule
500 mg PO Q6H 7 Days Qty: 28 0RF
Continued
ondansetron 8 mg tablet,disintegrating
8 mg PO TID PRN (Reason: nausea and vomiting) Qty: 20 0RF
tamsulosin [Flomax] 0.4 mg capsule
0.4 mg PO HS Qty: 10 0RF
sertraline 100 mg tablet
200 mg PO DAILY
hydroxyzine HCl 10 mg tablet
10 mg PO TID PRN (Reason: anxiety)
prazosin 2 mg capsule
2 mg PO HS
bupropion HCl 150 mg tablet extended release 24 hr
150 mg PO DAILY
ketorolac 10 mg tablet
10 mg PO QID PRN (Reason: mild pain)
oxycodone 5 mg tablet
5 mg PO Q4H PRN (Reason: Moderate Pain)
multivitamin Tablet
1 tab PO DAILY
ferrous sulfate 325 mg (65 mg iron) Tablet
650 mg PO DAILY
Discharge Orders:
Discharge Patient (As Directed); Ordered 09/21/23
Ordered By: Joshua Walls
Discharge Date and Time
Print Language: PAP[place]
[2023-09-21] MEDS: TYLENOL 650 MG PO (11:04)
--- NOTE | 2023-09-21 11:10 | W.PN.URO.CBU ---
Today's Communication / Plan
-
home on po abx per medical team
pt to f/u next week for removal of ureteral stent
Assessment / Plan
-
urologically stable
Diagnosis
-
Date of Service: September 21, 2023
-
Patient Diagnosis:
Right Ureteral Stone
E. coli UTI
s/p Right Ureteroscopy, Laser Lithotripsy, Stenting on 09/19
Post Op Day: 1
Subjective
-
less pain
Objective
-
Vital Signs
Temp Pulse Resp BP Pulse Ox
97.9 F 80 18 134/67 96
09/21/23 07:30 09/21/23 07:30 09/21/23 07:30 09/21/23 07:30 09/21/23 07:30
Intake and Output
09/20/23 09/21/23 09/22/23
06:59 06:59 06:59
Intake Total 240 / 240 2100 / 2100
Output Total 700 / 700 2450 / 2450
Balance -460 / -460 -350 / -350
Intake:
Oral fluids 240 / 240 1250 / 1250
IV fluids (Total) 850 / 850
Normosol 250 / 250
Output:
Urine, Voided 700 / 700 2450 / 2450
Other:
Number of approximated MODERATE 1
amounts of urine
Laboratory Results
09/20/23 05:35
09/20/23 05:35
Urine: E. coli
Physical Exam
-
General - well developed, well nourished, no acute distress
Chest - clear bilaterally
Abdomen - soft, non-tender, positive bowel sounds, no CVAT, no incisional pain or distention
Genitalia - normal
Rectal - normal
Skin - warm & dry with no rash
Neuro - AOx3, no motor deficits
Extremities - no clubbing, no cyanosis, no edema
Incision - clean, dry
Dressing - clean, dry, intact
--- NOTE | 2023-09-21 11:20 | CM ---
Patient seen bedside.
Patient for d/c today.
Patient denies home care needs.
Plan: home no needs.
[2023-09-21 11:59] VITALS: BP 109/58
== END 2023-09-21 12:14 | disposition home or self-care (01) | DRG 660 ==
LOC: 4 EAST ACU 23:42
PROVIDERS: Emergency Medicine; Internal Medicine; Physician Assistant; ADMITTING PHYSICIAN Hospitalist; ATTENDING PHYSICIAN Hospitalist; CONSULT PHYSICIAN Specialist; EMERGENCY PHYSICIAN Emergency Medicine; FAMILY PHYSICIAN Nurse Practitioner
PROC: 0TF68ZZ Fragmentation in Right Ureter, Via Natural or Artificial Opening Endoscopic (ICD-10-PCS; 2023-09-20)
PROC: 0T768DZ Dilation of Right Ureter with Intraluminal Device, Via Natural or Artificial Opening Endoscopic (ICD-10-PCS; 2023-09-20)
DX: N20.1 Calculus of ureter (principal); N39.0 Urinary tract infection, site not specified; Z68.43 Body mass index [BMI] 50.0-59.9, adult; M54.50 Low back pain, unspecified; F32.A Depression, unspecified; F43.10 Post-traumatic stress disorder, unspecified; B96.20 Unspecified Escherichia coli [E. coli] as the cause of diseases classified elsewhere; E66.01 Morbid (severe) obesity due to excess calories; Z87.442 Personal history of urinary calculi
CPT/HCPCS: 74018; 74176; 76000; 80048; 80053; 81003; 81015; 85025; 87086; 87088; 87186; 93005; 96374; 96375; 96376; 99285; C1894; C2617

== ENCOUNTER 2024-02-25 15:55 | Emergency (ER) | payer BC, SELFPAY ==
[2024-02-25 15:59] VITALS: BP 151/110
[2024-02-25 16:35] LABS: COVID-19 Antigen Positive (Negative)
[2024-02-25] MEDS: DECADRON 10 MG PO (17:57)
[2024-02-25] MEDS: ProAIR HFA INHALER 2 PUFF INH (17:57)
[2024-02-25 17:59] VITALS: BMI 57.3
[2024-02-25] MEDS: TYLENOL 1000 MG PO (18:00)
[2024-02-25] MEDS: TORADOL 30 MG IM (18:00)
--- NOTE | 2024-02-25 18:17 | ED.GENMED ---
History of Present Illness
General
Chief Complaint: Cold/Flu/URI Symptoms
Source: patient
Exam Limitations: none
Time Seen by Provider: 02/25/24 17:22
Nursing documentation reviewed up to this point in time: agreed with
History of Present Illness
History of Present Illness:
28-year-old female with history as documented presents to the ER for evaluation of flulike illness. Patient reports that for the past 3 days she has had sore throat, runny nose, fatigue, myalgias, subjective fever and chills. She says she has had
a hacking cough with clear sputum production. She says that she has some pain in her chest with coughing. She denies any significant shortness of breath. She has not had any new nausea/vomiting/diarrhea�she reports occasional issues with diarrhea
and nausea on a chronic basis but no worse than usual. She denies any other complaints.
Past History
Past History
ED Past Medical History: Other (Kidney stones)
Social History
Tobacco: Non-smoker
Review of Systems
Review of Systems
All Other Systems: ROS reviewed and negative except as documented in HPI and ROS
Constitutional: Reports fever, fatigue and chills
EENT: Reports sore throat and runny nose
Respiratory: Reports cough; Denies trouble breathing
Cardiac: Reports chest pain; Denies palpitations
ABD/GI: Denies abdominal pain, nausea, vomiting or diarrhea
: Denies flank pain
Musculoskeletal: Reports muscle pain (Myalgias); Denies neck pain or back pain
Neurological: Reports headache
Phy Exam
Physical Exam
Physical Exam:
General: Awake, alert, oriented x3; no acute distress
Head: Normocephalic, atraumatic
Eyes: Conjunctiva normal
Throat: Airway intact, handling secretions, slight erythema of the tonsils and posterior pharynx, midline uvula no edema, no exudate, no palatal petechiae, no vesicles
Neck: Trachea midline, bilateral anterior chain cervical adenopathy
Lungs: Clear to auscultation bilaterally, no wheezing, rales, rhonchi; frequent coughing throughout exam; normal respiratory rate, normal pulse ox on room air
Heart: Mild tachycardia with regular rhythm, no murmurs, gallops, or rubs
Abd: Soft, non distended, nontender
Neuro: No gross deficits
Skin: no rash
Extremities: Warm well-perfused
Scores
Heart Failure Risk
Heart Failure Risk Score: Not Applicable
Heart Score for Chest Pain Patients
STEMI patient?: Not applicable
Withdrawal Assessment of Alcohol
Withdrawal Assessment Completed?: Not applicable
Course
Orders/Labs/Results
Orders:
Orders
02/25/24 16:05
COVID-19 Antigen Urgent
Source: Nasal Swab
Influenza A+B Rapid Molecular Urgent
BOLA Source: Nasal Swab
Specimen Description:
02/25/24 17:27
Acetaminophen [Tylenol] 1,000 mg PO NOW STA
Albuterol [ProAIR HFA INHALER] 2 puff INH R NOW STA
Ketorolac [Toradol] 30 mg IM NOW STA
02/25/24 17:28
Dexamethasone [Decadron] 10 mg PO NOW STA
CR Chest - 2 Views Urgent
Comment:
Reason For Exam: cough, eval for pna
02/25/24 18:13
Amoxicillin 875 mg/Clav 125 mg [Augmentin 875 mg/125 mg] 1 tablet PO NOW STA
Azithromycin [Zithromax] 500 mg PO NOW STA
Abnormal Lab Results
02/25/24
16:05
SARS-CoV-2 Antigen Positive A
(Negative)
Vital Signs
Initial and Last Documented VS:
Initial Vital Signs
Temp Pulse Resp BP Pulse Ox
37.1 C 106 16 151/110 95
02/25/24 15:59 02/25/24 15:59 02/25/24 15:59 02/25/24 15:59 02/25/24 15:59
Last Documented Vital Signs
Temp Pulse Resp BP Pulse Ox
37.1 C 106 16 151/110 95
02/25/24 15:59 02/25/24 15:59 02/25/24 15:59 02/25/24 15:59 02/25/24 15:59
MDM/Problems Addressed
Differential Diagnosis Includes:
Viral syndrome, pneumonia
MDM/Problems Addressed:
28-year-old female presents with flulike illness for the past 3 days. Mild tachycardia and mild hypertension otherwise normal vitals. Notably normal respiratory rate and pulse ox. Physical exam as above. She had a COVID swab sent in triage�this
was positive and I suspect is primary etiology of her symptoms. Given report of productive cough and some mild chest pain with coughing will check chest x-ray to rule out pneumonia. Will treat with steroid and albuterol, Tylenol, Toradol.
Reassess after the above.
Chest x-ray shows mild right upper lobe pneumonia�likely viral in the setting of COVID infection but will cover with antibiotics. No clear indication for admission to the hospital at this point in time she does not appear to be septic, has normal
respiratory rate, normal work of breathing, normal pulse ox. Stable for discharge to follow-up with PCP. She feels comfortable with this plan. Spoke about return precautions all questions answered.
Acute Exacerbation and/or Progression of Chronic Illness:
Acutely hypertensive with no signs or symptoms of hypertensive emergency�no indication for emergent antihypertensive treatment
Acute Exacerbation and/or Progression of Chronic Illness: HTN
*Radiology
Radiology exam reviewed: preliminary read by ED provider and radiology read reviewed
*Pulse Oximetry
Patient hypoxic: no
*Critical Care Note
Total Time (30-74mins, 75-104mins- exclusive of procedures): Not Applicable
Data Reviewed
Source: patient
ED Attending Note
-
Portions of this chart may have been created with voice recognition software.� Occasional wrong word or��sound alike� substitutions may have occurred due to the inherent limitations of voice recognition software.
Discharge Plan
Departure
Patient Disposition: Home (Routine Discharge)
Date of Disposition: 02/25/24
Time of Disposition: 18:21
Patient with high blood pressure during this ER visit?: Yes
Discharge Problem:
COVID-19, Pneumonia
Instructions: Pneumonia in adults, COVID-19 ED
Prescriptions:
New
amoxicillin-pot clavulanate 875-125 mg tablet
1 tab PO BID Qty: 14 0RF
azithromycin [Zithromax] 250 mg tablet
250 mg PO DAILY Qty: 4 0RF
No Action
ondansetron 8 mg tablet,disintegrating
8 mg PO TID PRN (Reason: nausea and vomiting) Qty: 20 0RF
tamsulosin [Flomax] 0.4 mg capsule
0.4 mg PO HS Qty: 10 0RF
sertraline 100 mg tablet
200 mg PO DAILY
hydroxyzine HCl 10 mg tablet
10 mg PO TID PRN (Reason: anxiety)
prazosin 2 mg capsule
2 mg PO HS
bupropion HCl 150 mg tablet extended release 24 hr
150 mg PO DAILY
ketorolac 10 mg tablet
10 mg PO QID PRN (Reason: mild pain)
oxycodone 5 mg tablet
5 mg PO Q4H PRN (Reason: Moderate Pain)
multivitamin Tablet
1 tab PO DAILY
ferrous sulfate 325 mg (65 mg iron) Tablet
650 mg PO DAILY
cephalexin 500 mg capsule
500 mg PO Q6H 7 Days Qty: 28 0RF
Referrals:
Dena Guerrero CRNP [Family Provider] - Call in 1-3 days for appt
Activity Restrictions/Additional Instructions:
Thank you for visiting the Emergency Department at [facility].
1. Please schedule a follow up appointment as directed. Call first thing tomorrow morning to make an appointment.
2. If indicated, please take your medications as instructed and indicated on discharge paperwork.
3. If any of your symptoms do not improve, or persist, or become more severe within 6-12 hours, please return to the emergency department for further care.
4. Please return to the emergency department if you develop a headache, neck pain/stiffness, fever greater than 100.4F, chest pain, shortness of breath, persistent nausea, vomiting, slurred speech, difficulty walking, numbness/tingling, weakness,
signs of infection or any other symptoms that are worrisome to you.
Please call [phone] if you have any questions.
Discharge Date and Time
Print Language: MALAYSIAN
[2024-02-25] MEDS: AUGMENTIN 875 MG/125 MG 1 TABLET PO (18:31)
[2024-02-25] MEDS: ZITHROMAX 500 MG PO (18:31)
[2024-02-25 18:39] VITALS: BP 148/86
== END 2024-02-25 18:41 | disposition home or self-care (01) ==
LOC: EMR 15:55
PROVIDERS: Emergency Medicine; EMERGENCY PHYSICIAN Emergency Medicine; FAMILY PHYSICIAN Nurse Practitioner
DX: U07.1 COVID-19 (principal); J12.82 Pneumonia due to coronavirus disease 2019
CPT/HCPCS: 94640; 96372; 99284; 71046; 87502; 87811

== ENCOUNTER → 2024-04-25 10:52 | Outpatient (REF) | payer BC, SELFPAY | LOC: RAD 10:52 | PROVIDERS: ATTENDING PHYSICIAN Nurse Practitioner | DX: M54.50 Low back pain, unspecified (principal) | CPT/HCPCS: 72110 ==

== ENCOUNTER 2024-04-30 22:04 | Observation (INO) | payer BC, SELFPAY ==
[2024-04-30 16:16] VITALS: BP 138/84
[2024-04-30] MEDS: TORADOL 30 MG IV (17:32)
[2024-04-30] MEDS: NSS 1000 IV ×2 (17:32→23:36)
[2024-04-30] MEDS: ZOFRAN 4 MG IV ×2 (17:32→21:58)
[2024-04-30 17:46] LABS: Urine Albumin Trace (Neg - Trace); Urine Bilirubin Negative (Negative); Urine Character Very Cloudy (Clear); Urine Color Yellow; Urine Glucose Negative (Negative); Urine Ketone Negative (Negative); Urine Leukocyte 1+ (Negative); Urine Nitrite Negative (Negative); Urine Occult Blood Negative (Negative); Urine Specific Gravity 1.025 (<1.030); Urine Urobilinogen Negative (Neg - 1+)
[2024-04-30 17:47] LABS: % Basophils 0.3 % (0-2); % Immature Granulocytes 0.5 % (0-0.5); % Lymphocytes 27.5 % (20.5-51.1); % Monocytes 5.9 % (1.7-9.3); % Neutrophils 63.8 % (42.2-75.2); Absolute Eosinophils 0.2 10^3/uL (0-0.7); Absolute Immature Granulocytes 0.1 10^3/uL (0-0.05); Absolute Lymphocytes 2.9 10^3/uL (1.2-3.4); Absolute Monocytes 0.6 10^3/uL (0.1-0.6); Absolute Neutrophils 6.7 10^3/uL (1.4-6.5); Hematocrit 39.6 % (37.0-47.0); Hemoglobin 13.1 g/dL (12.0-16.0); Mean Corp Hgb Conc. 33.1 g/dL (33.0-37.0); Mean Corpuscular Hgb 27.7 pg (27.0-31.0); Mean Corpuscular Volume 83.7 fL (81.0-99.0); Mean Platelet Volume 8.8 fL (7.4-10.4); Nucleated Red Blood Cells % 0 %; Platelet Count 315 10^3/uL (130-400); Red Blood Cell Count 4.73 10^6/uL (4.20-5.40); Red Cell Dist. Width 12.7 % (11.5-14.5); White Blood Cell Count 10.5 10^3/uL (4.8-10.8)
[2024-04-30 17:49] LABS: HCG, Urine Qualitative Screen Negative
[2024-04-30 17:54] LABS: Urine Bacteria Many (Negative); Urine Red Blood Cell 0-2 /HPF (0-2)
[2024-04-30 17:58] LABS: ALT (SGPT) 28 U/L (0-35); AST (SGOT) 30 U/L (14-36); Albumin 4.3 g/dl (3.5-5.0); Alkaline Phosphatase 99 U/L (38-126); Blood Urea Nitrogen 11 mg/dl (7-17); Calcium 10.8 mg/dl (8.4-10.2); Carbon Dioxide 28 mmol/L (22-30); Chloride 103 mmol/L (98-107); Glucose 129 mg/dl (70-99); Lipase 63 U/L (23-300); Potassium 3.8 mmol/L (3.5-5.1); Sodium 139 mmol/L (135-145); Total Bilirubin 0.5 mg/dl (0.2-1.3); Total Protein 6.9 g/dl (6.3-8.2); eGFR > 60.00
--- NOTE | 2024-04-30 18:44 | ED.GENMED ---
History of Present Illness
General
Chief Complaint: Flank Pain
Time Seen by Provider: 04/30/24 17:06
History of Present Illness
History of Present Illness:
29-year-old female with past medical history of kidney stones presenting to the emergency department for left flank pain. Patient reports symptoms for the past few days, worsened today. Does report some radiation to the abdomen. Notes urinary
frequency without dysuria. Denies fever. Notes history of ureteral stenting in the past. Denies chest pain or difficulty breathing. She has not tried any medications for pain. She feels that her symptoms are consistent with her kidney stone
history. She denies additional acute medical complaints.
Past History
Past History
ED Past Medical History: Other (Kidney stones)
Social History
Tobacco: Non-smoker
Phy Exam
Physical Exam
Physical Exam:
General: Well-appearing, no clinical signs of dehydration, nontoxic and in no acute distress
HEENT: protecting airway
Neck: appears supple
CV: Normal heart rate, regular rhythm
Resp: No accessory muscle use, no increased work of breathing, lungs clear to auscultation bilaterally
Abd: Soft and non-distended, no tenderness to palpation. Left CVA tenderness to palpation
Extremities: No deformities, no swelling, no erythema
Neuro: alert, no focal neurologic deficit
: deferred
Rectal: deferred
Psych: Normal affect
Skin: Intact
Course
Orders/Labs/Results
Orders:
Orders
04/30/24 17:26
0.9% Sodium Chloride 1000 ml [Nss] 1,000 ml IV BOLUS
Ketorolac [Toradol] 30 mg IV NOW STA
Ondansetron Injectable [Zofran] 4 mg IV NOW STA
Test Result ONCE
04/30/24 17:27
CT Abd/pel Without Iv Or Oral Urgent
Comment:
Reason For Exam: L-flank pain, hx stones
04/30/24 17:31
Complete Blood Count/With Diff Urgent
HCG, Urine Qualitative Screen Urgent
Date Specimen was Collected: 04/30/24
Time Specimen was Collected: 17:30
Urinalysis Reflex To Culture Urgent
Date Specimen was Collected: 04/30/24
Time Specimen was Collected: 17:30
Urine Microscopic Reflex Cult Urgent
Urine Culture Urgent
BOLA Source: U
Specimen Description:
Date Specimen was Collected: 04/30/24
Time Specimen was Collected: 17:30
04/30/24 17:32
Comprehensive Metabolic Panel Urgent
Lipase Urgent
04/30/24 19:34
HYDROmorphone [Dilaudid] 1 mg IV NOW STA
Abnormal Lab Results
04/30/24 04/30/24
17:31 17:32
Abs Immat Gran (auto) 0.1 H 10^3/uL
(0-0.05)
Absolute Neuts (auto) 6.7 H 10^3/uL
(1.4-6.5)
Glucose 129 H mg/dl
(70-99)
Calcium 10.8 H mg/dl
(8.4-10.2)
Leukocyte Esterase Rfl 1+ A
(Negative)
Urine WBC (Reflex) 11-15 A /HPF
(0-5)
Urine Bacteria (Reflex) Many A
(Negative)
04/30/24 17:31
04/30/24 17:32
Vital Signs
Initial and Last Documented VS:
Initial Vital Signs
Temp Pulse Resp BP Pulse Ox
98.4 F 104 16 138/84 100
04/30/24 16:16 04/30/24 16:16 04/30/24 16:16 04/30/24 16:16 04/30/24 16:16
Last Documented Vital Signs
Temp Pulse Resp BP Pulse Ox
98.9 F 76 26 133/69 98
04/30/24 19:43 04/30/24 19:43 04/30/24 19:43 04/30/24 19:43 04/30/24 19:49
MDM/Problems Addressed
MDM/Problems Addressed:
29-year-old female with prior history of kidney stones presenting for left-sided flank pain. Vital signs on arrival are significant for mild tachycardia.
On exam, patient in no acute distress, however is comfortable secondary to pain. Benign examination of the abdomen, however does have left CVA tenderness. Ultimately suspect nephrolithiasis. Will obtain laboratory analysis, CT imaging. Toradol
and Zofran administered for patient's symptoms. Will reassess for improvement. At this time, patient nontoxic, afebrile with lower suspicion for infected stone.
20:30 -patient's labs are relatively unremarkable, no leukocytosis. Urine without significant sign of infection, does show some bacteria. Patient continues to complain of pain, so Dilaudid administered with slight improvement. CT shows a
nonobstructing 7.2 mm stone, intrarenal. Plan for for pain control. Did discuss with urology, without concern for emergent treatment of the stone. Observation admission for pain control
*Critical Care Note
Total Time (30-74mins, 75-104mins- exclusive of procedures): Not Applicable
ED Attending Note
-
Portions of this chart may have been created with voice recognition software.� Occasional wrong word or��sound alike� substitutions may have occurred due to the inherent limitations of voice recognition software.
Discharge Plan
Departure
Prescriptions:
No Action
ondansetron 8 mg tablet,disintegrating
8 mg PO TID PRN (Reason: nausea and vomiting) Qty: 20 0RF
tamsulosin [Flomax] 0.4 mg capsule
0.4 mg PO HS Qty: 10 0RF
sertraline 100 mg tablet
200 mg PO DAILY
hydroxyzine HCl 10 mg tablet
10 mg PO TID PRN (Reason: anxiety)
prazosin 2 mg capsule
2 mg PO HS
bupropion HCl 150 mg tablet extended release 24 hr
150 mg PO DAILY
ketorolac 10 mg tablet
10 mg PO QID PRN (Reason: mild pain)
oxycodone 5 mg tablet
5 mg PO Q4H PRN (Reason: Moderate Pain)
multivitamin Tablet
1 tab PO DAILY
ferrous sulfate 325 mg (65 mg iron) Tablet
650 mg PO DAILY
cephalexin 500 mg capsule
500 mg PO Q6H 7 Days Qty: 28 0RF
amoxicillin-pot clavulanate 875-125 mg tablet
1 tab PO BID Qty: 14 0RF
azithromycin [Zithromax] 250 mg tablet
250 mg PO DAILY Qty: 4 0RF
Referrals:
Dena Guerrero CRNP [Family Provider] -
Interventions
Interventions:
*Risk Screen - Suicide Last Done: 04/30/24 16:18
*Neglect/Abuse Screening Last Done: 04/30/24 16:18
ED- Fall Risk Assessment Last Done: 04/30/24 17:35
*ED COVID-19 Vaccine History Last Done: 04/30/24 16:17
SH-Harsxy-Wsbsdsifcx Assessment Last Done: 04/30/24 19:49
ED-Female Genitourinary Assessment Last Done: 04/30/24 17:37
Discharge Date and Time
Print Language: MALAY
[2024-04-30] MEDS: DILAUDID 1 MG IV (19:37)
[2024-04-30 19:43] VITALS: BP 133/69
[2024-04-30 20:53] VITALS: BP 169/95
--- NOTE | 2024-04-30 20:57 | HPS.HSE ---
Family Physician
-
Family Physician: CARLOS Wilhelm
Chief Complaint
-
Left-sided flank pain with urgency
History of Present Illness
29-year-old female with past medical history of renal calculi requiring ureteral stent and removal.. She presents to the ER today complaining of left flank pain with radiation to abdomen over the past few days but worsened today. She also reports
urinary frequency without dysuria. She complains of left flank pain increasing with urination. She denies any sediment. She denies fever, chills, chest pain, palpitations, shortness of breath, cough, nausea, vomiting, diarrhea. She is past
medical history of renal calculi requiring removal and ureteral stenting, migraines, depression, anxiety, PTSD, class III obesity, IUD, 1 para 1.
Medical History
Past Medical History
Past Medical History: Reports Other
Additional Past Medical History:
renal calculi requiring removal and ureteral stenting
migraines
depression
anxiety
PTSD
class III obesity
IUD, 1 para 1
Past Surgical History: Reports Other
Additional Past Surgical History:
renal calculi requiring removal and ureteral stenting
Social History
Tobacco: Non-smoker
Alcohol: Occasional
Personal:
Living: With Family
Family History
Family History: Other (Patient is adopted although states her full blood sister and half-sister have PCOS)
Allergies / Home Medications
Allergies reflects when Allergies were last updated in [facility].
Home Medications with original date entered in [facility]
Allergy/Medication List:
Allergies
Allergy/AdvReac Type Severity Reaction Status Date / Time
No Known Allergies Allergy Verified 04/30/24 16:18
Home Medications
prazosin 2 mg capsule 2 mg PO DAILYPRN PRN nightmares/PTSD 09/18/23
sertraline 100 mg tablet 200 mg PO DAILY depression 09/18/23
albuterol sulfate 90 mcg/actuation aerosol inhaler 2 puff inhalation R Q4HPRN PRN sob/wheezing 04/30/24
cholecalciferol (vitamin D3) 25 mcg (1,000 unit) tablet 25 mcg PO DAILY 04/30/24
cyanocobalamin (vitamin B-12) 1,000 mcg tablet 1,000 mcg PO DAILY 04/30/24
sumatriptan succinate 25 mg tablet 25 mg PO PRN PRN migraine 04/30/24
Review of Systems
-
History Source: Patient
A 12 point ROS was completed and negative except as noted: Yes
Constitutional: Denies Fever, Fatigue or Chills
EENT: Denies Sore Throat or Runny Nose
Respiratory: Denies Cough or Trouble Breathing
Cardiac: Denies Chest Pain, Palpitations or Syncope
Abdomen/GI: Reports Abdominal Pain (Left abdomen/left flank); Denies Nausea or Vomiting
: Reports Frequency; Denies Dysuria, Difficulty Voiding, Urgency or Dark Urine
Musculoskeletal: Denies Joint Pain or Edema
Skin: Denies Itching or Rash
Neurological: Denies Dizzy or Headache
Endocrine: Reports No Symptoms
Hematologic/Lymphatic: Reports No Symptoms
Psych: Reports Calm
Physical Exam
Vital Signs
Vital Signs
Temp Pulse Resp BP Pulse Ox
98.9 F 72 20 169/95 94
04/30/24 19:43 04/30/24 20:53 04/30/24 20:53 04/30/24 20:53 04/30/24 20:53
Physical Exam
General: Conversant and Pain; No Fever or Chills
HEENT: NormoCephalic, Anicteric, Moist mucous membranes, PERRLA, Closter Conjunctivae, No Ptosis and Neck Nontender
Respiratory: Clear; No Wheezes, Rales or Rhonchi
Cardiac: S1/S2 and Regular Rhythm; No Murmur, Rub, Gallop or Peripheral Edema
Breast: Deferred by me
GI: Soft and Tender (Left flank left-sided abdomen suprapubic unable to palpate liver and spleen due to size of abdomen)
Genito-urinary: Deferred by me
Musculoskeletal: No Clubbing, No Cyanosis and No Edema
Skin: Warm and Dry; No Rash, Jaundice or Ulcers
Neuro: AO x 3, No Motor Deficits, Nonfocal/grossly intact, Cranial Nerves Intact and No Sensory Deficits; No Slurred Speech, Facial Droop, Tremors or Sedated
Psych: Calm
Laboratory Results
-
04/30/24 17:31
04/30/24 17:32
Laboratory Results
Total Bilirubin 0.5 mg/dl (0.2-1.3) 04/30/24 17:32
AST 30 U/L (14-36) 04/30/24 17:32
ALT 28 U/L (0-35) 04/30/24 17:32
Alkaline Phosphatase 99 U/L (38-126) 04/30/24 17:32
Lipase 63 U/L (23-300) 04/30/24 17:32
Impression/Plan
-
Impression/plan:
Observation MedSurg
#Renal colic secondary to left intrarenal calculus
#Hx renal calculi requiring removal and ureteral stent in past
-IV Toradol moderate pain, IV Dilaudid moderate-severe pain
-IV Zofran
-Flomax 0.4 mg at bedtime
-IV NSS
-Strain urine
CT abdomen pelvis without IV or oral contrast:
1. 7.2 mm nonobstructing left intrarenal calculus.
2. Mild diffuse urinary bladder wall thickening.
3. Mild hepatomegaly.
4. IUD in the uterus.
#Migraine history
-No current headache
-Takes sumatriptan 25 mg p.o. as needed migraine
#Depression/anxiety
-Continue Zoloft 20 mg daily
#Vitamin B12 deficiency
-Continue B12 1000 mcg p.o. daily
#Class III obesity-BMI 56
-Patient was asking about weight loss medications such as Coleman Case
I advised patient to speak with her primary care provider who can see with her insurance which ones are covered for obesity only I did mention Zepbound is 1 of those medications.
DVT prophylaxis
Subcu Lovenox
Full code
--- NOTE | 2024-04-30 21:07 | W.PN.UPDATE ---
Update Note
Progress Note Update
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
HPI:
29F HX kidney stones with HX stent placement pw acute L-flank pain.
Nontoxic
Hypertensive
Stable HD state
Lt Flank pain n
No leukocytosis,
04/30/24
UA 17:31
Leukocyte Esterase Rfl 1+ A
Urine WBC (Reflex) 11-15 A
Ur Squamous Epith Cells 11-15
Urine Bacteria (Reflex) Many A
CT AP Without Iv Or Oral
1. 7.2 mm nonobstructing left intrarenal calculus.
2. Mild diffuse urinary bladder wall thickening.
3. Mild hepatomegaly.
4. IUD in the uterus
ASSESSMENT & PLAN
Intractable pain
Suspected renal colic due to 7.2 mm non obstructing intrarenal stone with some bladder wall thickening.
- Per urology: given non-obstructing, non invasive conservative approach with pain control, anti emetics and IVF
- add Flomax
HX PTST on Prazosin
Class III Obesity ( BMP 56)
DVT Px: SCD
Full code
Obs MS
[2024-04-30 22:40] VITALS: BP 133/66
[2024-04-30 22:58] VITALS: BMI 55.6
[2024-04-30 23:03] VITALS: BP 136/66
--- NOTE | 2024-05-01 00:33 | PTCARENOTE ---
Pt received from ED via stretcher. Ambulated to bed independently w/o incident. Oriented to surroundings and plan of care discussed. Admission and assessment completed (refer to worklist). Pt verbalizes relief from nausea, reports L flank pain
06/28. #20 RAC w/NSS infusing at 80 mL/hr, without complication. Call [facility] w/in reach. Plan of care ongoing.
[2024-05-01] MEDS: TORADOL 30 MG IV (04:17)
--- NOTE | 2024-05-01 07:08 | CON.MD ---
Consultation - Medical
-
see dictated note
pt with hx of recent right ureteral stone and 10/10 ureteroscopy/laser litho and stent; stent fell out at home and pt has not been back to office for follow up
ct at that time showed non-obstructing left lower pole stone
pt has had increasing left side low back pain for several months- progressing- worse with activity/at work- now settled over left hip
has out xrays and due for appointment at [facility] today
presented to ER with increasing pain- ct performed- stone in left kidney in exact same position as in september with no hydro/stranding/inflammation
no fevers/wbc normal/icx with some bacteria
plan
pt's stone is not the source of pain
possible uti/pyelo- ucx pending
would rec pain management/neuromuscular eval and outpt f/u at some point to review elective options for left sided stone
[2024-05-01 07:20] VITALS: BP 118/74
[2024-05-01] MEDS: ZOLOFT 200 MG PO (08:19)
[2024-05-01] MEDS: VITAMIN D3 (cholecalciferol) 25 MCG PO (08:19)
[2024-05-01] MEDS: VITAMIN B-12 1000 MCG PO (08:19)
[2024-05-01] MEDS: NSS 1000 IV (08:20)
[2024-05-01 08:28] LABS: ALT (SGPT) 28 U/L (0-35); AST (SGOT) 29 U/L (14-36); Albumin 3.6 g/dl (3.5-5.0); Alkaline Phosphatase 86 U/L (38-126); Blood Urea Nitrogen 10 mg/dl (7-17); Carbon Dioxide 26 mmol/L (22-30); Chloride 108 mmol/L (98-107); Estimated Creatinine Clearance > 125 ml/min; Glucose 92 mg/dl (70-99); HDL Cholesterol 43 mg/dl; LDL Cholesterol, Calculated 91 mg/dl; Potassium 4.2 mmol/L (3.5-5.1); Sodium 140 mmol/L (135-145); Total Bilirubin 0.7 mg/dl (0.2-1.3); Total Cholesterol 151 mg/dl (50-199); Total Protein 6.1 g/dl (6.3-8.2); Triglyceride 89 mg/dl (10-149); Very Low Density Lipoprotein 17 mg/dl (0-30); eGFR > 60.00
[2024-05-01 08:51] LABS: % Basophils 0.4 % (0-2); % Eosinophils 3.5 % (0-6); % Immature Granulocytes 0.2 % (0-0.5); % Lymphocytes 34.6 % (20.5-51.1); % Monocytes 7.6 % (1.7-9.3); % Neutrophils 53.7 % (42.2-75.2); Absolute Eosinophils 0.2 10^3/uL (0-0.7); Absolute Lymphocytes 1.9 10^3/uL (1.2-3.4); Absolute Monocytes 0.4 10^3/uL (0.1-0.6); Absolute Neutrophils 2.9 10^3/uL (1.4-6.5); Hematocrit 38.5 % (37.0-47.0); Hemoglobin 12.3 g/dL (12.0-16.0); Mean Corp Hgb Conc. 31.9 g/dL (33.0-37.0); Mean Corpuscular Hgb 28.2 pg (27.0-31.0); Mean Corpuscular Volume 88.3 fL (81.0-99.0); Mean Platelet Volume 9.2 fL (7.4-10.4); Nucleated Red Blood Cells % 0 %; Platelet Count 266 10^3/uL (130-400); Red Blood Cell Count 4.36 10^6/uL (4.20-5.40); Red Cell Dist. Width 12.8 % (11.5-14.5); White Blood Cell Count 5.4 10^3/uL (4.8-10.8)
[2024-05-01 09:18] VITALS: BMI 55.9
--- NOTE | 2024-05-01 10:09 | W.PN.HOSP.TC ---
Today's Communication/Plan
-
Discharge
Assessment / Plan
Assessment / Plan
Gen-AAOx3, NAD, morbid obesity
HEENT-NC, AT, anicteric, clear oral mm
Neck-supple
CV-reg, no M, +S1/S2
Lungs-clear B/L
Abd-soft, NT, ND
Ext-no edema
Musculoskeletal-no cyanosis, clubbing, tender left lateral lumbar spine
Skin-warm and dry
Neuro-grossly non-focal
Psych-calm, cooperative
Intractable back pain -suspect musculoskeletal in nature, paravertebral muscle spasm. Mostly left-sided lumbar spine. Does have a history of back pain in the past. Pain is worsened with activity.
Recommend NSAIDs and muscle relaxants. Recommend diet exercise and weight loss. Discussed with patient.
Stable for discharge. Follow-up with PCP.
Left intrarenal stone -without obstruction. Not the source of pain. Appreciate urology input. Follow-up as outpatient.
PTSD
Anxiety disorder
PCOS
Morbid obesity due to excess calories
Full code
Dispo -stable for discharge. Outpatient follow-up.
35 minutes spent in discharge process.
Anticipated Discharge: Today
Subjective/Interval History
-
Date of Service: May 01, 2024
Patient seen and examined. Complaining of left flank pain.
Objective Data
-
Labs:
Laboratory Results
05/01/24
07:32
WBC 5.4
Hgb 12.3
Hct 38.5
Plt Count 266
Sodium 140
Potassium 4.2
Chloride 108 H
Carbon Dioxide 26
BUN 10
Creatinine 0.6
Glucose 92
Calcium 10.0
Total Bilirubin 0.7
AST 29
ALT 28
Alkaline Phosphatase 86
Vital Signs:
Vital Signs
Temp Pulse Resp BP Pulse Ox
98.8 F 77 17 118/74 100
05/01/24 07:20 05/01/24 07:20 05/01/24 07:20 05/01/24 07:20 05/01/24 08:10
I&O
04/30/24 05/01/24 05/02/24
06:59 06:59 06:59
Intake Total 840 / 840
Output Total 450 / 450
Balance 390 / 390
Review of Systems
-
History Source: Patient
All other systems: Reviewed and negative
--- NOTE | 2024-05-01 10:15 | W.DS.TRANS ---
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
-
Discharge Instructions:
Discharge Diagnosis/Procedures Musculoskeletal back pain
Diet Regular
Activity As tolerated
Driving Restrictions As prior to admission
Bathing Restrictions None
Instructions:
Stand-Alone Forms:
Changes to Home Medications: No
Discharge Medications:
DC Medications w/original date entered in [facility]
prazosin 2 mg capsule 2 mg PO DAILYPRN PRN nightmares/PTSD 09/18/23
sertraline 100 mg tablet 200 mg PO DAILY depression 09/18/23
albuterol sulfate 90 mcg/actuation aerosol inhaler 2 puff inhalation R Q4HPRN PRN sob/wheezing 04/30/24
cholecalciferol (vitamin D3) 25 mcg (1,000 unit) tablet 25 mcg PO DAILY 04/30/24
cyanocobalamin (vitamin B-12) 1,000 mcg tablet 1,000 mcg PO DAILY 04/30/24
sumatriptan succinate 25 mg tablet 25 mg PO PRN PRN migraine 04/30/24
cyclobenzaprine 5 mg tablet 5 mg PO TID PRN muscle spasm #20 tabs 05/01/24
ibuprofen 800 mg tablet 800 mg PO Q6H PRN Pain #30 tabs 05/01/24
Home Medication Changes
Pending Results: No
[2024-05-01] MEDS: AFLURIA (36 mos+) 2024-2025 FORMULA 0.5 ML IM (10:30)
--- NOTE | 2024-05-01 13:12 | CM ---
Pt alert awake oriented who lives with her Rakesh in a 2 story home with 1 step to enter and 15 steps to bed/bathroom.
she is independent in driving and all ADLs. Offered VN she declined VN need.Observation letter given explained signed on chart.
No VN/SNF hx.
No adaptive devices.
Pharmacy [facility].
PCP Dr Landry
PLAN Home no needs
== END 2024-05-01 11:19 | disposition home or self-care (01) ==
LOC: 4 EAST ACU 22:04
PROVIDERS: Clinical Nurse Specialist Family Health; ADMITTING PHYSICIAN Internal Medicine; ATTENDING PHYSICIAN Hospitalist; EMERGENCY PHYSICIAN Student in an Organized Health Care Education/Training Program; FAMILY PHYSICIAN Nurse Practitioner
DX: N20.0 Calculus of kidney (principal); S39.012A Strain of muscle, fascia and tendon of lower back, initial encounter; X58.XXXA Exposure to other specified factors, initial encounter; F43.10 Post-traumatic stress disorder, unspecified; F41.9 Anxiety disorder, unspecified; E28.2 Polycystic ovarian syndrome; E66.01 Morbid (severe) obesity due to excess calories; Z68.43 Body mass index [BMI] 50.0-59.9, adult; Z87.442 Personal history of urinary calculi
CPT/HCPCS: 74176; 80053; 80061; 81003; 81015; 81025; 83690; 85025; 87086; 90686; 96361; 96374; 96375; 99285; G0008; G0378

== ENCOUNTER 2024-05-10 05:40 | Inpatient (IN) | payer BC, SELFPAY ==
[2024-05-10] VITALS (22 sets, daily range): BP systolic 113–154; BP diastolic 71–106; BMI 56.4
--- NOTE | 2024-05-10 03:01 | ED.GENMED ---
History of Present Illness
<MATT Rapp - Last Filed: 05/10/24 03:51>
General
Chief Complaint: Flank Pain
Source: patient
Time Seen by Provider: 05/10/24 03:00
Nursing documentation reviewed up to this point in time: agreed with
History of Present Illness
History of Present Illness:
Pt is a 29 yo F with a history of nephrolithiasis, anxiety, and depression who presents to the emergency department with severe left flank pain from known kidney stone on the left side. Pt states that the pain became unbearable tonight. She states
that she was laying down and putting a pillow behind her back when the pain began. Pt denies taking any OTC pain medication at home and denies that changing positions improve the pain. Pt states the pain is located in the left flank and radiates
around to her abdomen in the left lower quadrant. Pt states that she can not get comfortable and that the 'pain is overtaking everything'. Pt also admits to associated nausea, vomiting, and hematuria. Pt states that she feels nauseous from the pain
and vomited 1 time prior to arrival. Pt denies fever, chills, constipation, burning with urination.
Pt states she has had kidney stones previously 3 times. Pt has urology appointment on 05/14 for left sided nephrolithiasis.
Past History
<MATT Rapp - Last Filed: 05/10/24 03:51>
Past History
ED Past Medical History: Other (Kidney stones)
Social History
Tobacco: Non-smoker
Review of Systems
<MATT Rapp - Last Filed: 05/10/24 03:51>
Review of Systems
Allergies reviewed?: Yes
Constitutional: Reports no symptoms
Respiratory: Reports no symptoms
Cardiac: Reports no symptoms
ABD/GI: Reports abdominal pain, nausea, vomiting and diarrhea
: Reports flank pain and other (hematuria)
Neurological: Reports no symptoms
Phy Exam
<Anika Moreau [facility] - Last Filed: 05/10/24 03:51>
General Physical Exam
General Presentation: severe distress
General age: appears stated age
General Skin: warm
General Habitus: obese
General Mental: tearful
Cardiovascular Exam
Cardiovascular Exam: regular rate/rhythm
Pulmonary Exam
Pulmonary Exam: lungs clear
Gastrointestinal Exam
Gastrointestinal Exam: normal bowel sounds, soft, guarding and tender
Palpation: left lower quadrant: Severe tenderness
Course
<Anika Moreau [facility] - Last Filed: 05/10/24 03:51>
Orders/Labs/Results
Orders:
Orders
05/10/24 02:54
0.9% Sodium Chloride 1000 ml [Nss] 1,000 ml IV BOLUS
HYDROmorphone [Dilaudid] 1 mg IV NOW STA
Ketorolac [Toradol] 15 mg IV NOW STA
Ondansetron Injectable [Zofran] 4 mg IV NOW STA
05/10/24 02:55
Test Result ONCE
05/10/24 03:17
CT Abd/pel Without Iv Or Oral Urgent
Comment:
Reason For Exam: flank pain
05/10/24 03:19
Complete Blood Count/With Diff Urgent
Comprehensive Metabolic Panel Urgent
HCG, Serum Qualitative Screen Urgent
05/10/24 04:52
Urinalysis Reflex To Culture Urgent
Date Specimen was Collected: 05/10/24
Time Specimen was Collected: 04:48
Urine Microscopic Reflex Cult Urgent
Urine Culture Urgent
BOLA Source: U
Specimen Description:
Date Specimen was Collected: 05/10/24
Time Specimen was Collected: 04:48
05/10/24 05:13
Acetaminophen 1000MG/100Ml [Ofirmev] 1,000 mg in 100 ml IV ONCE
Acetaminophen IV Indication:: ED Narcotic History-ONCE
05/10/24 05:27
Admit/Transfer Patient As Directed
Co-Sign Provider:
Level of Care: Inpatient admission
Assign to:: Medical/Surgical
Physician / Group: hospitalist
Diagnosis: Nephrolithiasis
Reason for Hospitalization: nephrolithiasis
Expected length of stay greater than two midnights?: Yes
ELOS- Estimated Length of Stay in days: 2
I certify the patient meets the requirements for IP care: Yes
PRN Pain Medication Management As Directed
May give lesser potent ordered pain med per pt: Yes
preference::
Protocol:: Medication orders for pain may be administered in a
manner that supports deferring to patient preference
when the pt is:
- Requesting an ordered lesser potent pain medication.
Least to most potent pain medications are defined
as: acetaminophen < NSAID < tramadol < opioids
(morphine, oxycodone, hydromorphone).
- Requesting a lesser dose of the same medication IF
ORDERED.
- Requesting a less intrusive route of administration
if both routes are prescribed by the provider (PO <
IV).
05/10/24 05:28
Code Status As Directed
Resuscitation Status: Full Code
Abnormal Lab Results
05/10/24 05/10/24
03:19 04:52
MCHC 32.2 L g/dL
(33.0-37.0)
Carbon Dioxide 20 L mmol/L
(22-30)
Creatinine 0.5 L mg/dL
(0.6-1.0)
Glucose 101 H mg/dl
(70-99)
Calcium 10.7 H mg/dl
(8.4-10.2)
Urine Ketones Trace A
(Negative)
Ur Occult Blood Reflex 4+ A
(Negative)
Leukocyte Esterase Rfl 2+ A
(Negative)
Urine RBC >100 A /HPF
(0-2)
Urine Bacteria (Reflex) Many A
(Negative)
Urine Albumin (Reflex) 1+ A
(Neg - Trace)
05/10/24 03:19
05/10/24 03:19
Vital Signs
Initial and Last Documented VS:
Initial Vital Signs
Temp Pulse Resp Pulse Ox
98.2 F 105 20 97
05/10/24 02:43 05/10/24 02:43 05/10/24 02:43 05/10/24 02:43
Last Documented Vital Signs
Temp Pulse Resp BP Pulse Ox
98.2 F 63 15 127/77 96
05/10/24 02:43 05/10/24 05:15 05/10/24 05:15 05/10/24 05:00 05/10/24 03:22
<Chauncey Lewis, DO - Last Filed: 05/10/24 05:55>
Orders/Labs/Results
Orders:
Orders
05/10/24 02:54
0.9% Sodium Chloride 1000 ml [Nss] 1,000 ml IV BOLUS
HYDROmorphone [Dilaudid] 1 mg IV NOW STA
Ketorolac [Toradol] 15 mg IV NOW STA
Ondansetron Injectable [Zofran] 4 mg IV NOW STA
05/10/24 02:55
Test Result ONCE
05/10/24 03:17
CT Abd/pel Without Iv Or Oral Urgent
Comment:
Reason For Exam: flank pain
05/10/24 03:19
Complete Blood Count/With Diff Urgent
Comprehensive Metabolic Panel Urgent
HCG, Serum Qualitative Screen Urgent
05/10/24 04:52
Urinalysis Reflex To Culture Urgent
Date Specimen was Collected: 05/10/24
Time Specimen was Collected: 04:48
Urine Microscopic Reflex Cult Urgent
Urine Culture Urgent
BOLA Source: U
Specimen Description:
Date Specimen was Collected: 05/10/24
Time Specimen was Collected: 04:48
05/10/24 05:13
Acetaminophen 1000MG/100Ml [Ofirmev] 1,000 mg in 100 ml IV ONCE
Acetaminophen IV Indication:: ED Narcotic History-ONCE
05/10/24 05:27
Admit/Transfer Patient As Directed
Co-Sign Provider:
Level of Care: Inpatient admission
Assign to:: Medical/Surgical
Physician / Group: hospitalist
Diagnosis: Nephrolithiasis
Reason for Hospitalization: nephrolithiasis
Expected length of stay greater than two midnights?: Yes
ELOS- Estimated Length of Stay in days: 2
I certify the patient meets the requirements for IP care: Yes
PRN Pain Medication Management As Directed
May give lesser potent ordered pain med per pt: Yes
preference::
Protocol:: Medication orders for pain may be administered in a
manner that supports deferring to patient preference
when the pt is:
- Requesting an ordered lesser potent pain medication.
Least to most potent pain medications are defined
as: acetaminophen < NSAID < tramadol < opioids
(morphine, oxycodone, hydromorphone).
- Requesting a lesser dose of the same medication IF
ORDERED.
- Requesting a less intrusive route of administration
if both routes are prescribed by the provider (PO <
IV).
05/10/24 05:28
Code Status As Directed
Resuscitation Status: Full Code
Abnormal Lab Results
05/10/24 05/10/24
03:19 04:52
MCHC 32.2 L g/dL
(33.0-37.0)
Carbon Dioxide 20 L mmol/L
(22-30)
Creatinine 0.5 L mg/dL
(0.6-1.0)
Glucose 101 H mg/dl
(70-99)
Calcium 10.7 H mg/dl
(8.4-10.2)
Urine Ketones Trace A
(Negative)
Ur Occult Blood Reflex 4+ A
(Negative)
Leukocyte Esterase Rfl 2+ A
(Negative)
Urine RBC >100 A /HPF
(0-2)
Urine Bacteria (Reflex) Many A
(Negative)
Urine Albumin (Reflex) 1+ A
(Neg - Trace)
05/10/24 03:19
05/10/24 03:19
Vital Signs
Initial and Last Documented VS:
Initial Vital Signs
Temp Pulse Resp Pulse Ox
98.2 F 105 20 97
05/10/24 02:43 05/10/24 02:43 05/10/24 02:43 05/10/24 02:43
Last Documented Vital Signs
Temp Pulse Resp BP Pulse Ox
98.2 F 63 15 127/77 96
05/10/24 02:43 05/10/24 05:15 05/10/24 05:15 05/10/24 05:00 05/10/24 03:22
<MATT Rapp - Last Filed: 05/10/24 03:51>
MDM/Problems Addressed
Differential Diagnosis Includes:
Nephrolithiasis, hydronephrosis, acute cystitis
<MATT Rapp - Last Filed: 05/10/24 03:51>
*Critical Care Note
Total Time (30-74mins, 75-104mins- exclusive of procedures): Not Applicable
<Chauncey Lewis DO - Last Filed: 05/10/24 05:55>
Update Note
Update Note:
CT abdomen and pelvis without contrast
IMPRESSION:
Obstructing 5 mm left ureteropelvic junction calculus with associated mild left hydronephrosis. No additional nephrolithiasis.
Spoke with Dr. Villalba and nighttime hospitalist. Patient to be admitted to hospitalist service. Patient to be made NPO. Patient's pain will be controlled. Dr. Villalba will see in the morning.
ED Attending Note
<MATT Rapp - Last Filed: 05/10/24 03:51>
-
Portions of this chart may have been created with voice recognition software.� Occasional wrong word or��sound alike� substitutions may have occurred due to the inherent limitations of voice recognition software.
<Chauncey Lewis DO - Last Filed: 05/10/24 05:55>
ED Attending Note
Patient seen and examined by attending physician: Yes
I performed the substantive portion of visit, reviewed & personally made and approve the management plan that is documented in note by myself or NOHEMY.: Yes
ED Attending Note:
29-year-old female presents with left-sided flank pain. Patient was seen in the emergency department approximately 1 week ago and diagnosed with a 7 .2 millimeter kidney stone in the lower pole of the left kidney. Patient states that she went home
and had persistent pain. Tonight the pain has exacerbated. Denies fever or chills.
Discharge Plan
Departure
Patient Disposition: Admit
Date of Disposition: 05/10/24
Time of Disposition: 05:54
Admit to: Med/Surg
Presentation/result/management discussed w/ accepting MD/DO: Hospitalist
Condition: Good
Discharge Problem:
Kidney stone on left side
Interventions
Interventions:
*Risk Screen - Suicide Last Done: 05/10/24 02:43
*General Assessment Last Done: 05/10/24 03:22
*Neglect/Abuse Screening Last Done: 05/10/24 02:43
ED- Fall Risk Assessment Last Done: 05/10/24 03:22
*ED COVID-19 Vaccine History Last Done: 05/10/24 03:01
SY-Afbuyl-Plxdlaabwc Assessment Last Done: 05/10/24 02:56
ED-Female Genitourinary Assessment Last Done: 05/10/24 02:56
[2024-05-10] MEDS: ZOFRAN 4 MG IV ×2 (03:08→09:18)
[2024-05-10] MEDS: TORADOL 15 MG IV (03:11)
[2024-05-10] MEDS: DILAUDID 1 MG IV (03:15)
[2024-05-10] MEDS: NSS 1000 IV (03:30)
[2024-05-10 03:41] LABS: % Basophils 0.4 % (0-2); % Eosinophils 3.6 % (0-6); % Immature Granulocytes 0.3 % (0-0.5); % Lymphocytes 31.8 % (20.5-51.1); % Monocytes 5.8 % (1.7-9.3); % Neutrophils 58.1 % (42.2-75.2); Absolute Eosinophils 0.4 10^3/uL (0-0.7); Absolute Lymphocytes 3.2 10^3/uL (1.2-3.4); Absolute Monocytes 0.6 10^3/uL (0.1-0.6); Absolute Neutrophils 5.9 10^3/uL (1.4-6.5); Hematocrit 42.3 % (37.0-47.0); Hemoglobin 13.6 g/dL (12.0-16.0); Mean Corp Hgb Conc. 32.2 g/dL (33.0-37.0); Mean Corpuscular Hgb 27.3 pg (27.0-31.0); Mean Corpuscular Volume 84.9 fL (81.0-99.0); Mean Platelet Volume 8.5 fL (7.4-10.4); Nucleated Red Blood Cells % 0 %; Platelet Count 342 10^3/uL (130-400); Red Blood Cell Count 4.98 10^6/uL (4.20-5.40); Red Cell Dist. Width 12.8 % (11.5-14.5); White Blood Cell Count 10.1 10^3/uL (4.8-10.8)
[2024-05-10 03:59] LABS: HCG, Serum Qualitative Screen Negative
[2024-05-10 04:08] LABS: ALT (SGPT) 26 U/L (0-35); AST (SGOT) 29 U/L (14-36); Albumin 4.4 g/dl (3.5-5.0); Alkaline Phosphatase 107 U/L (38-126); Blood Urea Nitrogen 10 mg/dl (7-17); Calcium 10.7 mg/dl (8.4-10.2); Carbon Dioxide 20 mmol/L (22-30); Chloride 106 mmol/L (98-107); Estimated Creatinine Clearance > 125 ml/min; Glucose 101 mg/dl (70-99); Potassium 4.1 mmol/L (3.5-5.1); Sodium 141 mmol/L (135-145); Total Bilirubin 0.7 mg/dl (0.2-1.3); Total Protein 7.2 g/dl (6.3-8.2); eGFR > 60.00
[2024-05-10 05:01] LABS: Urine Albumin 1+ (Neg - Trace); Urine Bilirubin Negative (Negative); Urine Character Cloudy (Clear); Urine Color Amber; Urine Glucose Negative (Negative); Urine Ketone Trace (Negative); Urine Leukocyte 2+ (Negative); Urine Nitrite Negative (Negative); Urine Occult Blood 4+ (Negative); Urine Specific Gravity 1.025 (<1.030); Urine Urobilinogen Negative (Neg - 1+)
[2024-05-10] MEDS: OFIRMEV 100 IV (05:17)
--- NOTE | 2024-05-10 05:41 | HPS.HSE ---
Family Physician
-
Family Physician: CARLOS Wilhelm
Chief Complaint
-
Worsening flank pain
History of Present Illness
This is a 29-year-old female with past medical history of obesity, anxiety, migraine headaches, recurrent nephrolithiasis who presents to the emergency department with worsening left-sided flank pain and episode of hematuria about 2 days ago.
Patient was seen in the emergency department about 1 week ago for back pain and was found to have a left-sided kidney stone at that time. Did not appear to be causing any issues and the patient was sent home on pain medicine and muscle relaxants.
She reported that she continued to have intermittent back pain and then left-sided flank pain. She reported that she was able to tolerate the intermittency of the pain up until today when the pain lasted for an hour and then when she tried to
urinate she got very severe sharp left-sided flank pain that has been persistent until coming to the emergency department. Patient reports history of 3 episodes of kidney stones with 1 episode requiring urological procedure. She denies any known
stone analysis or 24-hour urinalysis analysis for stone propensity. She denies having any fevers or chills. She has not had any nausea or vomiting.
In the emergency department she was afebrile hemodynamically stable and in pain but otherwise no acute distress. There was no leukocytosis. Electrolytes BUN and creatinine are within the normal range. She had a CT of the abdomen pelvis which
showed a 5 mm left UPJ stone. UA with RBCs and leukocyte esterase but no bacteria or nitrites.
Medical History
Past Medical History
Past Medical History: Reports Asthma and Psychiatric
Additional Past Medical History:
Urolithiasis
Obesity
Migraine DELAROSA
Past Surgical History: Reports None
Social History
Tobacco: Non-smoker
Alcohol: Occasional
Drug: Marijuana
Personal:
Living: With Family
Employment: Employed
Family History
Family History: Adopted
Allergies / Home Medications
Allergies reflects when Allergies were last updated in [employer].
Home Medications with original date entered in [employer]
Allergy/Medication List:
Allergies
Allergy/AdvReac Type Severity Reaction Status Date / Time
No Known Allergies Allergy Verified 04/30/24 16:18
Home Medications
prazosin 2 mg capsule 2 mg PO DAILYPRN PRN nightmares/PTSD 09/18/23
sertraline 100 mg tablet 200 mg PO DAILY depression 09/18/23
albuterol sulfate 90 mcg/actuation aerosol inhaler 2 puff inhalation R Q4HPRN PRN sob/wheezing 04/30/24
cholecalciferol (vitamin D3) 25 mcg (1,000 unit) tablet 25 mcg PO DAILY 04/30/24
cyanocobalamin (vitamin B-12) 1,000 mcg tablet 1,000 mcg PO DAILY 04/30/24
sumatriptan succinate 25 mg tablet 25 mg PO PRN PRN migraine 04/30/24
cyclobenzaprine 5 mg tablet 5 mg PO TID PRN muscle spasm #20 tabs 05/01/24
ibuprofen 800 mg tablet 800 mg PO Q6H PRN Pain #30 tabs 05/01/24
Review of Systems
-
Constitutional: Reports No Symptoms
EENT: Reports No Symptoms
Respiratory: Reports No Symptoms
Cardiac: Reports No Symptoms
Abdomen/GI: Reports No Symptoms
: Reports Flank Pain
Musculoskeletal: Reports No Symptoms
Skin: Reports No Symptoms
Neurological: Reports No Symptoms
Endocrine: Reports No Symptoms
Hematologic/Lymphatic: Reports No Symptoms
Psych: Reports No Symptoms
Physical Exam
Vital Signs
Vital Signs
Temp Pulse Resp BP Pulse Ox
98.2 F 63 15 127/77 96
05/10/24 02:43 05/10/24 05:15 05/10/24 05:15 05/10/24 05:00 05/10/24 03:22
Physical Exam
General: Well Developed, Well Nourished, Pain and Morbidly Obese
HEENT: NormoCephalic, Anicteric, Moist mucous membranes and Atraumatic
Respiratory: Clear
Cardiac: S1/S2 and Regular Rhythm
Breast: Deferred by me
GI: Soft, Non Tender, Non Distended and Normal Bowel Sounds
Rectal: Deferred by Provider
Genito-urinary: Deferred by me
Musculoskeletal: No Clubbing, No Cyanosis and No Edema
Skin: Warm
Neuro: AO x 3
Hematologic/Lymphatic: No Lymphadenopathy
Psych: Calm
Laboratory Results
-
05/10/24 03:19
05/10/24 03:19
Laboratory Results
Total Bilirubin 0.7 mg/dl (0.2-1.3) 05/10/24 03:19
AST 29 U/L (14-36) 05/10/24 03:19
ALT 26 U/L (0-35) 05/10/24 03:19
Alkaline Phosphatase 107 U/L (38-126) 05/10/24 03:19
Data Reviewed
-
CT Scan: Image Personally Visualized and interpreted and Report Reviewed by me
Lab Data: Labs Reviewed by me
Old Records: Reviewed
Impression/Plan
-
IMPRESSION:
Symptomatic Urolithiasis with failure of outpatient management.
PLAN:
1. Urolithiasis - Obstructing 5mm/7mm UPJ stone without JULIAN or acute infection. Patient in agony secondary to pain. Failure of outpatient pain management.
- admit to med/surg
- d/w urology, OR today
- NPO for now
- patient is s/p 1 L NS in ED, will hold further fluids
- pain control with toradol and dilaudid iv prn
- holding cyclobenzaprine for now
DVT PPX - lovenox sq
Code status - full code
[2024-05-10 05:49] LABS: Urine Amorphous Seen; Urine Mucus Many; Urine Red Blood Cell >100 /HPF (0-2); Urine Squamous Cell >30 /LPF (Few)
[2024-05-10 05:50] LABS: Urine Bacteria Many (Negative); Urine Calcium Oxalate Crystals Seen
[2024-05-10 05:51] LABS: Urine Yeast SEEN (Negative)
[2024-05-10 05:52] LABS: Urine Urothelial Cell SEEN /LPF (FEW)
[2024-05-10] MEDS: ROCEPHIN 1000 MG IV (09:06)
[2024-05-10] MEDS: TORADOL 10 MG IV ×2 (09:06→21:15)
[2024-05-10] MEDS: STERILE WATER FOR INJECTION 10 ML IV (09:07)
[2024-05-10] MEDS: ZOLOFT 200 MG PO (09:55)
--- NOTE | 2024-05-10 13:10 | W.PN.HOSP.TC ---
Today's Communication/Plan
-
OR today
empiric abx
f/u cultures
Assessment / Plan
Assessment / Plan
Physical Exam
General: Well Developed, Well Nourished, Pain and Morbidly Obese
HEENT: NormoCephalic, Anicteric, Moist mucous membranes and Atraumatic
Respiratory: Clear
Cardiac: S1/S2 and Regular Rhythm
Breast: Deferred by me
GI: Soft, Non Tender, Non Distended and Normal Bowel Sounds
Rectal: Deferred by Provider
Genito-urinary: Deferred by me
Musculoskeletal: No Clubbing, No Cyanosis and No Edema
Skin: Warm
Neuro: AO x 3
Hematologic/Lymphatic: No Lymphadenopathy
Psych: Calm
Symptomatic Urolithiasis with failure of outpatient management.
PLAN:
#Urolithiasis - Obstructing 5mm/7mm UPJ stone without JULIAN or acute infection.
#Complicated UTI
#Failure of outpatient pain management.
- admit to med/surg
- d/w urology, OR today
- NPO for now
- patient is s/p 1 L NS in ED, will hold further fluids
- pain control with toradol and dilaudid iv prn
- holding cyclobenzaprine for now
-empiric abx
DVT PPX - lovenox sq
Code status - full code
Total time spent on today's encounter was 51 minutes which included time spent in counseling the patient/family regarding diagnosis and treatment plan as listed above, goals of care, and symptom management. Case was discussed with nursing staff,
specialists, and care coordinators/case management. All labs and imaging personally reviewed by me. Remainder the time spent in detailed review of previous records, lab data, imaging, and other medical provider documentation.
Anticipated Discharge: Within 24 hours
Subjective/Interval History
-
Date of Service: May 10, 2024
No acute events overnight
Objective Data
-
Labs:
Laboratory Results
05/10/24
03:19
WBC 10.1
Hgb 13.6
Hct 42.3
Plt Count 342
Sodium 141
Potassium 4.1
Chloride 106
Carbon Dioxide 20 L
BUN 10
Creatinine 0.5 L
Glucose 101 H
Calcium 10.7 H
Total Bilirubin 0.7
AST 29
ALT 26
Alkaline Phosphatase 107
Vital Signs:
Vital Signs
Temp Pulse Resp BP Pulse Ox
98.2 F 68 24 128/80 96
05/10/24 02:43 05/10/24 12:30 05/10/24 12:30 05/10/24 12:00 05/10/24 03:22
Review of Systems
-
History Source: Patient
All other systems: Not reviewed unless documented
Data Reviewed
-
CT Scan: Image personally visualized and interpreted and Report Reviewed by me
Labs: Labs Reviewed by me
--- NOTE | 2024-05-10 13:46 | CONS.URO ---
Consultation
-
Performing Provider: Peffer
Reason for Consultation: ureteral stone
Medical History
History of Present Illness
29F with prior history of stones and prior ureteroscopic removal years ago
Presenting with severe pain despite multiple medications for known L renal stone
Stone migrated to proximal ureter on repeat CT
No fevers/chills or signs of sepsis/UTI on admission
Patient admitted for intractable pain
Past Medical History
Past Medical History: Asthma and Other (Urolithiasis Obesity Migraine DELAROSA)
Past Surgical History: Urological (stone)
Social History
Tobacco: Non-smoker
Alcohol: Occasional
Drug: Marijuana
Family History
Family History: Reviewed & Not Pertinent
Allergies/Home Medications
Allergies
Allergy/AdvReac Type Severity Reaction Status Date / Time
No Known Allergies Allergy Verified 04/30/24 16:18
Home Medications
�Medication �Instructions �Recorded �Confirmed �Type
prazosin 2 mg capsule 2 mg PO DAILYPRN PRN 09/18/23 05/10/24 History
nightmares/PTSD
sertraline 100 mg tablet 200 mg PO DAILY depression 09/18/23 05/10/24 History
albuterol sulfate 90 mcg/actuation 2 puff inhalation R Q4HPRN PRN 04/30/24 05/10/24 History
aerosol inhaler sob/wheezing
cholecalciferol (vitamin D3) 25 25 mcg PO DAILY Supplement 04/30/24 05/10/24 History
mcg (1,000 unit) tablet
cyanocobalamin (vitamin B-12) 1,000 mcg PO DAILY Supplement 04/30/24 05/10/24 History
1,000 mcg tablet
sumatriptan succinate 25 mg tablet 25 mg PO PRN PRN migraine 04/30/24 05/10/24 History
cyclobenzaprine 5 mg tablet 5 mg PO TID PRN muscle spasm #20 05/01/24 05/10/24 Rx
tabs
ibuprofen 800 mg tablet 800 mg PO Q6H PRN Pain #30 tabs 05/01/24 05/10/24 Rx
Physical Exam
Vital Signs
Vital Signs
Temp Pulse Resp BP Pulse Ox
98.2 F 68 24 128/80 96
05/10/24 02:43 05/10/24 12:30 05/10/24 12:30 05/10/24 12:00 05/10/24 03:22
Lab / Testing Results
Laboratory Results
05/10/24 03:19
05/10/24 03:19
Physical Exam
General: Well Developed, Well Nourished and No Apparent Distress
Respiratory: Clear and Non Labored Respirations
GI: Soft
Genito-urinary: Costovertebral Angle Tend
Skin: Warm and Dry
Neuro: AO x 3
Psych: Calm and Intact Judgement
Assessment / Plan
-
29F with intractable pain from L prox ureteral stone
Discussed management of ureteral stones with options of management including trial of passage and surgical treatment with lithotripsy or ureteroscopy
Reviewed risks and benefits of each approach
Given significant pain patient prefers ureteroscopy done today. Discussed procedure and recovery. Reviewed ureteral stent management. Discussed complications including UTI, hematuria, damage to ureter, incomplete stone removal, or need for second
look procedure
- NPO
- Pain control
- OR today for ureteroscopy, laser lithotripsy, ureteral stent placement
- Can consider discharge today
[2024-05-10] MEDS: DILAUDID 0.5 MG IV (14:31)
--- NOTE | 2024-05-10 15:26 | PTCARENOTE ---
pt admitted to 2S room 2118 at 1415 from the ED. admission database completed. pt oriented to room, call barnes, bed controls and plan of care with verbalized understanding. Medicated w/Dilaudid IV for c/o severe 9/10 pain per AUG . remains NPO.
CHG wipes done x1, and pt transported to OR @ 1450 via bed.
--- NOTE | 2024-05-10 16:18 | W.IMMPOSTOP ---
Surgical Immed Post Op Note
-
Primary Surgeon: Anahifer
Assisting Surgeon: -
Pre-op Diagnosis: L ureteral stone
Post-op Diagnosis: same
Procedure Performed: L ureteroscopy, laser lithotripsy, stone removal
Anesthesia Type: gen
Specimen / Cultures: stone analysis
Estimated Blood Loss: none
Complications: none
Operative Findings: stone removed completely
No stent needed
--- NOTE | 2024-05-10 17:36 | PTCARENOTE ---
pt returned to room 2119 at 1725 from PACU. pt arrived awake and alert. denies pain. c/o being thirsty and hungry. VSS. care ongoing.
[2024-05-10] MEDS: LOVENOX 40 MG SC (18:30)
[2024-05-11 00:04] VITALS: BP 144/75
[2024-05-11 03:04] VITALS: BP 131/69
[2024-05-11] MEDS: TORADOL 10 MG IV ×2 (03:19→11:56)
[2024-05-11 06:48] LABS: Hematocrit 39.7 % (37.0-47.0); Mean Corp Hgb Conc. 32.7 g/dL (33.0-37.0); Mean Corpuscular Hgb 28.2 pg (27.0-31.0); Mean Corpuscular Volume 86.1 fL (81.0-99.0); Platelet Count 335 10^3/uL (130-400); Red Blood Cell Count 4.61 10^6/uL (4.20-5.40); Red Cell Dist. Width 12.7 % (11.5-14.5); White Blood Cell Count 14.7 10^3/uL (4.8-10.8)
[2024-05-11 07:19] LABS: ALT (SGPT) 21 U/L (0-35); AST (SGOT) 22 U/L (14-36); Albumin 3.7 g/dl (3.5-5.0); Alkaline Phosphatase 96 U/L (38-126); Blood Urea Nitrogen 11 mg/dl (7-17); Calcium 10.3 mg/dl (8.4-10.2); Carbon Dioxide 21 mmol/L (22-30); Chloride 108 mmol/L (98-107); Estimated Creatinine Clearance > 125 ml/min; Glucose 134 mg/dl (70-99); Potassium 4.2 mmol/L (3.5-5.1); Sodium 141 mmol/L (135-145); Total Bilirubin 0.1 mg/dl (0.2-1.3); Total Protein 6.3 g/dl (6.3-8.2); eGFR > 60.00
[2024-05-11 07:59] VITALS: BP 137/83
[2024-05-11] MEDS: ROCEPHIN 1000 MG IV (08:10)
[2024-05-11] MEDS: STERILE WATER FOR INJECTION 10 ML IV (08:10)
[2024-05-11] MEDS: ZOLOFT 200 MG PO (08:11)
[2024-05-11] MEDS: TYLENOL 650 MG PO (08:11)
[2024-05-11 11:31] VITALS: BP 146/80
--- NOTE | 2024-05-11 11:43 | CM ---
Patient seen at bedside with patient and son. Patient states that she plans to go home with her and son. Patient lives with her in a 2 story home with no needs. Patient PCP is Dr. Orona and she uses the [facility] in
[place]. Patient planning for discharge home today. CM will continue to follow for discharge planning needs.
Plan; home with no needs.
--- NOTE | 2024-05-11 12:24 | W.PN.URO.CBU ---
Today's Communication / Plan
-
stable home
Assessment / Plan
-
asx wbc sl elevyaed but non focal plan per hospitalist but ok for d/c from [facility]
Diagnosis
-
Date of Service: May 11, 2024
-
Patient Diagnosis:s/p lser stone removal unstented afebroile
Post Op Day:
Subjective
-
feels great no local or systemic complaintzs
Objective
-
Vital Signs
Temp Pulse Resp BP Pulse Ox
98.5 F 68 16 146/80 99
05/11/24 11:31 05/11/24 11:31 05/11/24 11:31 05/11/24 11:31 05/11/24 11:31
Intake and Output
05/10/24 05/11/24 05/12/24
06:59 06:59 06:59
Intake Total 480 / 480
Balance 480 / 480
Intake:
Oral fluids 480 / 480
Other:
Number of approximated MODERATE 2
amounts of urine
Laboratory Results
05/11/24 05:58
05/11/24 05:58
Review of Systems
-
Abdomen/GI: No Symptoms
: No Symptoms
Physical Exam
-
General - well developed, well nourished, no acute distress
Chest - clear bilaterally
Abdomen - soft, non-tender, positive bowel sounds, no CVAT, no incisional pain or distention
Genitalia - normal
Rectal - normal
Skin - warm & dry with no rash
Neuro - AOx3, no motor deficits
Extremities - no clubbing, no cyanosis, no edema
Incision - clean, dry
Dressing - clean, dry, intact
Care Review
Data Reviewed
Discussed with: Nursing and Family
--- NOTE | 2024-05-11 12:45 | W.PN.HOSP.TC ---
Addendum entered and electronically signed by Alessandro Fulton MD 05/12/24 16:18:
[id number]
Original Note:
Today's Communication/Plan
-
Bactrim
CBC, BMP in 3-5 days
F/u Urology outpatient
F/u PCP outpatient
Assessment / Plan
Assessment / Plan
Physical Exam
General: Well Developed, Well Nourished, Pain and Morbidly Obese
HEENT: NormoCephalic, Anicteric, Moist mucous membranes and Atraumatic
Respiratory: Clear
Cardiac: S1/S2 and Regular Rhythm
Breast: Deferred by me
GI: Soft, Non Tender, Non Distended and Normal Bowel Sounds
Rectal: Deferred by Provider
Genito-urinary: Deferred by me
Musculoskeletal: No Clubbing, No Cyanosis and No Edema
Skin: Warm
Neuro: AO x 3
Hematologic/Lymphatic: No Lymphadenopathy
Psych: Calm
Symptomatic Urolithiasis with failure of outpatient management.
PLAN:
#Urolithiasis - Obstructing 5mm/7mm UPJ stone without JULIAN or acute infection.
#Complicated UTI
#Failure of outpatient pain management.
- admit to med/surg
- d/w urology
- 05/10: L ureteroscopy, laser lithotripsy, stone removal; afebrile;
- pain control with toradol and dilaudid iv prn
-empiric abx
# Leukocytosis
� Most likely reactive
� Will provide empiric Bactrim for 5 days
� Remains afebrile, stable, nontoxic
-f/u cbc outpatient
DVT PPX - lovenox sq
Code status - full code
More than 30 minutes spent in discharge including
Final examination of the patient
Summarizing hospital stay
Instructions for continuing care to all relevant caregivers
Preparation of discharge records, prescriptions, and referral forms
Total time spent (36 in minutes):
Anticipated Discharge: Today
Subjective/Interval History
-
Date of Service: May 11, 2024
Symptoms resolved, no acute events overnight
Objective Data
-
Labs:
Laboratory Results
05/11/24
05:58
WBC 14.7 H
Hgb 13.0
Hct 39.7
Plt Count 335
Sodium 141
Potassium 4.2
Chloride 108 H
Carbon Dioxide 21 L
BUN 11
Creatinine 0.6
Glucose 134 H
Calcium 10.3 H
Total Bilirubin 0.1 L
AST 22
ALT 21
Alkaline Phosphatase 96
Vital Signs:
Vital Signs
Temp Pulse Resp BP Pulse Ox
98.5 F 68 16 146/80 99
05/11/24 11:31 05/11/24 11:31 05/11/24 11:31 05/11/24 11:31 05/11/24 11:31
I&O
05/10/24 05/11/24 05/12/24
06:59 06:59 06:59
Intake Total 480 / 480
Balance 480 / 480
Review of Systems
-
History Source: Patient
All other systems: Not reviewed unless documented
Data Reviewed
-
CT Scan: Image personally visualized and interpreted and Report Reviewed by me
Labs: Labs Reviewed by me
--- NOTE | 2024-05-11 12:52 | W.DS.TRANS ---
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
-
Discharge Instructions:
Discharge Diagnosis/Procedures s/p laser stone removal unstented afebrile
Activity As tolerated
Blood Work cbc and bmp in 3-5 days with pcp
Instructions:
Stand-Alone Forms:
Changes to Home Medications: Yes
Discharge Medications:
DC Medications w/original date entered in [employer]
prazosin 2 mg capsule 2 mg PO DAILYPRN PRN nightmares/PTSD 09/18/23
sertraline 100 mg tablet 200 mg PO DAILY depression 09/18/23
albuterol sulfate 90 mcg/actuation aerosol inhaler 2 puff inhalation R Q4HPRN PRN sob/wheezing 04/30/24
cholecalciferol (vitamin D3) 25 mcg (1,000 unit) tablet 25 mcg PO DAILY Supplement 04/30/24
cyanocobalamin (vitamin B-12) 1,000 mcg tablet 1,000 mcg PO DAILY Supplement 04/30/24
sumatriptan succinate 25 mg tablet 25 mg PO PRN PRN migraine 04/30/24
cyclobenzaprine 5 mg tablet 5 mg PO TID PRN muscle spasm #20 tabs 05/01/24
ibuprofen 800 mg tablet 800 mg PO Q6H PRN Pain #30 tabs 05/01/24
sulfamethoxazole 800 mg-trimethoprim 160 mg tablet (Bactrim DS) 1 tab PO Q12H 5 days #10 tabs 05/11/24
Home Medication Changes
sulfamethoxazole 800 mg-trimethoprim 160 mg tablet (Bactrim DS) 1 tab PO Q12H 5 days #10 tabs 05/11/24
Pending Results: No
--- NOTE | 2024-05-11 13:01 | PTCARENOTE ---
Patient ambulating to bathroom with a steady gait. Patient voiding pink tinged urine without difficulty, tolerated regular diet. Toradol given at 1200 for LLQ discomfort with good relief. Family at bedside.
== END 2024-05-11 13:38 | disposition home or self-care (01) | DRG 690 ==
LOC: 2 SOUTH 05:40
PROVIDERS: Radiology Neuroradiology; ADMITTING PHYSICIAN Internal Medicine; ATTENDING PHYSICIAN Internal Medicine; CONSULT PHYSICIAN Urology; EMERGENCY PHYSICIAN Student in an Organized Health Care Education/Training Program; FAMILY PHYSICIAN Nurse Practitioner
PROC: BT1F1ZZ Fluoroscopy of Left Kidney, Ureter and Bladder using Low Osmolar Contrast (ICD-10-PCS; 2024-05-10)
PROC: 0TC78ZZ Extirpation of Matter from Left Ureter, Via Natural or Artificial Opening Endoscopic (ICD-10-PCS; 2024-05-10)
DX: N13.6 Pyonephrosis (principal); Z68.43 Body mass index [BMI] 50.0-59.9, adult; Z87.442 Personal history of urinary calculi; J45.909 Unspecified asthma, uncomplicated; E66.9 Obesity, unspecified; G43.909 Migraine, unspecified, not intractable, without status migrainosus; F32.A Depression, unspecified
CPT/HCPCS: 74176; 74420; 76000; 80053; 81003; 81015; 82365; 84703; 85025; 85027; 87086; 96361; 96374; 96375; 99285; A4300; C1758; C1769; C1894

== ENCOUNTER 2024-10-13 08:12 | Emergency (ER) | payer BC, SELFPAY ==
[2024-10-13 08:24] VITALS: BP 146/82
[2024-10-13 09:37] VITALS: BMI 59.5
[2024-10-13 09:45] VITALS: BP 127/64
[2024-10-13] MEDS: TORADOL 15 MG IV (09:55)
[2024-10-13] MEDS: VALIUM INJECTION 5 MG IV (09:55)
[2024-10-13 10:00] VITALS: BP 127/64
--- NOTE | 2024-10-13 10:26 | ED.GENMED ---
History of Present Illness
General
Chief Complaint: Musculo-Skeletal Complaint
Time Seen by Provider: 10/13/24 08:53
History of Present Illness
History of Present Illness:
29-year-old female presents to the emergency department for evaluation of severe acute onset right gluteal and hip pain beginning upon awakening up this morning. States she had no pain when going to sleep last night. Denies any recent falls or
trauma. Pain is focal to the right lateral gluteal region, she is unable to ambulate. She denies any anterior abdominal pain, fevers, or chills. No lower urinary tract voiding symptoms. Does not feel comparable to her recent kidney stone
Past History
Past History
ED Past Medical History: Other (Kidney stones)
Social History
Tobacco: Non-smoker
Review of Systems
Review of Systems
Allergies reviewed?: Yes
All Other Systems: ROS reviewed and negative except as documented in HPI and ROS
Phy Exam
Physical Exam
Physical Exam:
GEN: Tearful, screaming in pain
HEENT: Oral mucosa moist, no scleral icterus
Cardiac: Regular rate
Lung: No respiratory distress, no tachypnea
Abdomen:, Obesity limits exam but grossly soft and nontender
MSK: No obvious external abnormalities to examination of the right hip and gluteal region, no skin rashes. Unable to perform significant range of motion due to exquisite pain
Skin: Good color, no pallor or jaundice, no rashes
Neuro: AO x3, moves all extremities freely
Psych: Calm, cooperative
Course
Orders/Labs/Results
Orders:
Orders
10/13/24 09:27
IV Insert/Care/Rem.- Treatment PRN
Ketorolac [Toradol] 15 mg IV NOW STA
diazePAM [Valium Injection] 5 mg IV NOW STA
10/13/24 10:36
Morphine Sulfate 4 mg IV NOW STA
CR Hip - RT w/wo Pel 2-3 Vw* Urgent
Comment:
Reason For Exam: R hip pain
Include a pelvis x-ray?: Yes
10/13/24 11:50
Test Result ONCE
10/13/24 12:38
CRP [C-Reactive Protein] Urgent
Complete Blood Count/With Diff Urgent
10/13/24 13:25
HYDROmorphone [Dilaudid] 0.5 mg IV NOW STA
10/13/24 13:47
Comprehensive Metabolic Panel Urgent
HCG, Serum Qualitative Screen Urgent
Abnormal Lab Results
10/13/24 10/13/24
12:38 13:47
Absolute Neuts (auto) 6.9 H 10^3/uL
(1.4-6.5)
Creatinine 0.5 L mg/dL
(0.6-1.0)
Calcium 10.5 H mg/dl
(8.4-10.2)
C-Reactive Protein 14.30 H mg/L
(0.0-10.00)
10/13/24 12:38
10/13/24 13:47
Vital Signs
Initial and Last Documented VS:
Initial Vital Signs
Temp Pulse Resp BP Pulse Ox
97.9 F 116 22 146/82 97
10/13/24 08:24 10/13/24 08:24 10/13/24 08:24 10/13/24 08:24 10/13/24 08:24
Last Documented Vital Signs
Temp Pulse Resp BP Pulse Ox
98.5 F 78 20 126/74 99
10/13/24 09:45 10/13/24 09:45 10/13/24 09:45 10/13/24 10:37 10/13/24 10:45
MDM/Problems Addressed
MDM/Problems Addressed:
Patient required a large dose of analgesics for pain control, at this time the etiology is uncertain but lumbar radiculopathy or muscle spasm in the pelvis is most likely. Labs are reassuring against an infectious etiology. No evidence of bony
trauma to the pelvis on x-rays. She was able to ambulate at time of discharge
*Critical Care Note
Total Time (30-74mins, 75-104mins- exclusive of procedures): Not Applicable
ED Attending Note
-
Portions of this chart may have been created with voice recognition software.� Occasional wrong word or��sound alike� substitutions may have occurred due to the inherent limitations of voice recognition software.
Discharge Plan
Departure
Patient Disposition: Home (Routine Discharge)
Date of Disposition: 10/13/24
Time of Disposition: 14:21
Patient with high blood pressure during this ER visit?: No
Discharge Problem:
Acute pain of right hip
Instructions: Radiculopathy of the neck and back (including sciatica) - Discharge instruc
Prescriptions:
New
methylprednisolone [Medrol (Nilson)] 4 mg tablets,dose pack
See Rx Instructions .ROUTE .COMPLEX Qty: 21 0RF
Rx Instructions:
orally per package directions
oxycodone 5 mg tablet
5 mg PO Q8H PRN (Reason: Pain) Qty: 8 0RF
No Action
sertraline 100 mg tablet
200 mg PO DAILY
prazosin 2 mg capsule
2 mg PO DAILYPRN PRN (Reason: nightmares/PTSD)
sumatriptan succinate 25 mg tablet
25 mg PO PRN PRN (Reason: migraine)
cyanocobalamin (vitamin B-12) 1,000 mcg Tablet
1,000 mcg PO DAILY
albuterol sulfate 90 mcg/actuation HFA aerosol inhaler
2 puff INHALATION R Q4HPRN PRN (Reason: sob/wheezing)
cholecalciferol (vitamin D3) 25 mcg (1,000 unit) Tablet
25 mcg PO DAILY
ibuprofen 800 mg tablet
800 mg PO Q6H PRN (Reason: Pain) Qty: 30 0RF
cyclobenzaprine 5 mg tablet
5 mg PO TID PRN (Reason: muscle spasm) Qty: 20 0RF
sulfamethoxazole-trimethoprim [Bactrim DS] 800-160 mg tablet
1 tab PO Q12H 5 Days Qty: 10 0RF
Referrals:
Dena Guerrero CRNP [Family Provider] -
Interventions
Interventions:
*Risk Screen - Suicide Last Done: 10/13/24 08:24
*General Assessment Last Done: 10/13/24 08:24
*Neglect/Abuse Screening Last Done: 10/13/24 08:24
*ED- Fall Risk Assessment Last Done: 10/13/24 09:45
*ED COVID-19 Vaccine History Last Done: 10/13/24 09:45
ED-Musculoskeletal Assessment Last Done: 10/13/24 09:45
Discharge Date and Time
Print Language: ZAMBIAN
[2024-10-13 10:37] VITALS: BP 126/74
--- NOTE | 2024-10-13 10:50 | EDRN ---
the pt refused to change into a gown before being taken to xray
[2024-10-13] MEDS: MORPHINE SULFATE 4 MG IV (11:19)
[2024-10-13 12:53] LABS: % Basophils 0.2 % (0-2); % Eosinophils 1.5 % (0-6); % Immature Granulocytes 0.3 % (0-0.5); % Lymphocytes 25.3 % (20.5-51.1); % Monocytes 5.4 % (1.7-9.3); % Neutrophils 67.3 % (42.2-75.2); Absolute Eosinophils 0.2 10^3/uL (0-0.7); Absolute Lymphocytes 2.6 10^3/uL (1.2-3.4); Absolute Monocytes 0.6 10^3/uL (0.1-0.6); Absolute Neutrophils 6.9 10^3/uL (1.4-6.5); Hematocrit 40.4 % (37.0-47.0); Hemoglobin 13.5 g/dL (12.0-16.0); Mean Corp Hgb Conc. 33.4 g/dL (33.0-37.0); Mean Corpuscular Hgb 28.2 pg (27.0-31.0); Mean Corpuscular Volume 84.3 fL (81.0-99.0); Mean Platelet Volume 8.8 fL (7.4-10.4); Nucleated Red Blood Cells % 0 %; Platelet Count 285 10^3/uL (130-400); Red Blood Cell Count 4.79 10^6/uL (4.20-5.40); Red Cell Dist. Width 12.5 % (11.5-14.5); White Blood Cell Count 10.3 10^3/uL (4.8-10.8)
[2024-10-13] MEDS: DILAUDID 0.5 MG IV (13:43)
[2024-10-13 14:11] LABS: HCG, Serum Qualitative Screen Negative
[2024-10-13 14:16] LABS: ALT (SGPT) 27 U/L (0-35); AST (SGOT) 30 U/L (14-36); Albumin 3.6 g/dl (3.5-5.0); Alkaline Phosphatase 108 U/L (38-126); Blood Urea Nitrogen 10 mg/dl (7-17); Calcium 10.5 mg/dl (8.4-10.2); Carbon Dioxide 26 mmol/L (22-30); Chloride 107 mmol/L (98-107); Estimated Creatinine Clearance > 125 ml/min; Glucose 86 mg/dl (70-99); Potassium 4.3 mmol/L (3.5-5.1); Sodium 139 mmol/L (135-145); Total Bilirubin 0.6 mg/dl (0.2-1.3); Total Protein 6.4 g/dl (6.3-8.2); eGFR > 60.00
== END 2024-10-13 15:10 | disposition home or self-care (01) ==
LOC: EMR 08:12
PROVIDERS: Physician Assistant; EMERGENCY PHYSICIAN Emergency Medicine; FAMILY PHYSICIAN Nurse Practitioner
DX: M25.551 Pain in right hip (principal); M79.18 Myalgia, other site; Z87.442 Personal history of urinary calculi
CPT/HCPCS: 96374; 96375; 99284; 73502; 80053; 84703; 85025; 86140

== ENCOUNTER 2024-10-15 12:43 | Emergency (ER) | payer BC, SELFPAY ==
[2024-10-15 12:46] VITALS: BP 144/104
[2024-10-15] MEDS: TORADOL 60 MG IM (14:29)
[2024-10-15] MEDS: ROXICODONE 5 MG PO (14:29)
--- NOTE | 2024-10-15 15:24 | ED.GENMED ---
History of Present Illness
General
Chief Complaint: Back Pain
Source: patient
Time Seen by Provider: 10/15/24 14:03
History of Present Illness
History of Present Illness:
29-year-old female with past medical history of GERD, anxiety/depression, PTSD, previous kidney stone presenting to the emergency department for evaluation of recurring and continued hip/back pain that started 2 days ago, seen in this emergency
department at that time with symptoms thought to be related to musculoskeletal etiology, pain initially improved yesterday but returned today. She reports that she finished the oxycodone that she was prescribed. States she is not sure how the pain
started as she notes no trauma, heavy lifting/bending/twisting, no fevers or infectious symptoms, urinary symptoms. Patient describes the pain to be right-sided in her lower back but radiating across into the left lower back and then into the right
hip and down her right leg. Social history noncontributory. No other concerns presently.
Past History
Past History
ED Past Medical History: Other (Kidney stones)
ED Past Surgical History: Urological
Social History
Tobacco: Non-smoker
Alcohol: None
Drug: None
Personal:
Living: with family
Review of Systems
Review of Systems
All Other Systems: ROS reviewed and negative except as documented in HPI and ROS
Phy Exam
Physical Exam
Physical Exam:
GENERAL: Alert , appears uncomfortable/in pain, moaning, hard time sitting still
HEAD: NCAT
EYE: clear conjunctiva
NECK: Supple
ENT: o/p clr, mmm.
CARDIAC: Tachycardic rate and rhythm which I suspect is pain related
LUNGS: Clear breath sounds bilaterally, no acute respiratory distress, no wheezes/rales/rhonchi
NEUROLOGICAL: Alert and oriented, no focal neuro deficits, EHL intact bilaterally. Sensation grossly intact to light touch throughout bilateral lower extremities
BACK: Limited range of motion secondary to pain. No focal areas of tenderness. No rashes
SKIN: Warm and dry, skin intact.
MUSCULOSKELETAL: No edema, well perfused.
PSYCH: Normal and appropriate interaction.
Scores
Heart Failure Risk
Heart Failure Risk Score: Not Applicable
Heart Score for Chest Pain Patients
STEMI patient?: Not applicable
Withdrawal Assessment of Alcohol
Withdrawal Assessment Completed?: Not applicable
Course
Orders/Labs/Results
Orders:
Orders
10/15/24 14:13
CT Lumbar Spine W/o Iv Contras Urgent
Comment:
Reason For Exam: worsening pain, unable to stand
Bladder Scan- Treatment ONCE
Ketorolac [Toradol] 60 mg IM NOW STA
10/15/24 14:15
Oxycodone [Roxicodone] 5 mg PO NOW STA
10/15/24 15:23
Acetaminophen [Tylenol] 1,000 mg PO NOW STA
Diazepam [Valium] 5 mg PO NOW STA
10/15/24 15:32
CT Abd/pel Without Iv Or Oral Urgent
Comment:
Reason For Exam: right lower back pain, hx stones
10/15/24 17:05
Urinalysis Reflex To Culture Urgent
Date Specimen was Collected: 10/15/24
Time Specimen was Collected: 15:06
Urine Microscopic Reflex Cult Urgent
Urine Culture Urgent
BOAL Source: U
Specimen Description:
Date Specimen was Collected: 10/15/24
Time Specimen was Collected: 15:06
Abnormal Lab Results
10/15/24
17:05
Leukocyte Esterase Rfl 2+ A
(Negative)
Urine WBC (Reflex) 11-15 A /HPF
(0-5)
Urine Bacteria (Reflex) Moderate A
(Negative)
Urine Albumin (Reflex) 1+ A
(Neg - Trace)
Vital Signs
Initial and Last Documented VS:
Initial Vital Signs
Temp Pulse Resp BP
98.3 F 135 26 144/104
10/15/24 12:46 10/15/24 12:46 10/15/24 12:46 10/15/24 12:46
Last Documented Vital Signs
Temp Pulse Resp BP Pulse Ox
98.3 F 87 26 121/76 97
10/15/24 12:46 10/15/24 17:46 10/15/24 12:46 10/15/24 17:46 10/15/24 17:46
MDM/Problems Addressed
Differential Diagnosis Includes:
Musculoskeletal back pain, disc herniation, nerve impingement, less concern for acute infectious etiology, compression fracture
I did consider renal/ureteral colic given patient's history however given the radiating nature into her left lower back as well as down her right leg I have less suspicion for kidney stone
MDM/Problems Addressed:
29-year-old female presenting to the emergency department for evaluation of right-sided lower back pain radiating down her right leg. Seen here 2 days ago as pain was mainly in her right hip, had imaging and labs done which were overall
unremarkable. Pain now more so in the right lower back but still noting pain to the right hip. Given this is her second visit to the ER in [address] imaging to further assess and ensure no other abnormalities. She did receive multiple
doses of IV narcotic medication while here. Will try to avoid this today with initial treatment of Toradol and oxycodone. Will check urinalysis. Disposition pending
*Radiology
Radiology exam reviewed: radiology read reviewed
*Pulse Oximetry
Patient hypoxic: no
*Critical Care Note
Total Time (30-74mins, 75-104mins- exclusive of procedures): Not Applicable
Data Reviewed
Review of Other/Old Records Reveals: Labs and Radiology Studies
Source: patient
Comment
Comment:
Patient initially had some relief with medications but is now requesting additional meds. I discussed with the patient my concern for continuing to treat with narcotic based medication and will trial other pain related measures. Tylenol and muscle
relaxer ordered. Awaiting imaging.
Patient Management
Escalation/DeEscalation of care consider admission/obs:
CT scans without any acute abnormality seen. Mild degenerative changes. Urinalysis does show 2+ leukocytes and 11-15 WBCs however there is greater than 30 squamous cells and moderate bacteria signifying possible contamination. Patient is already
on amoxicillin for reported ear infection. Given she is already on an antibiotic and without any current urinary symptoms I will hold on prescribing a new antibiotic until culture report is done. Will send a new prescription for muscle relaxant to
pharmacy. I provided the patient with outpatient orthopedics information. Otherwise stable for discharge home
ED Attending Note
-
Portions of this chart may have been created with voice recognition software.� Occasional wrong word or��sound alike� substitutions may have occurred due to the inherent limitations of voice recognition software.
Discharge Plan
Departure
Patient Disposition: Home (Routine Discharge)
Date of Disposition: 10/15/24
Time of Disposition: 18:07
Patient with high blood pressure during this ER visit?: No
Discharge Problem:
Dorsalgia of lumbosacral region
Instructions: Low Back Pain (DC)
Prescriptions:
New
diazepam [Valium] 5 mg tablet
5 mg PO BID PRN (Reason: muscle spasm) Qty: 8 0RF
No Action
sertraline 100 mg tablet
200 mg PO DAILY
prazosin 2 mg capsule
2 mg PO DAILYPRN PRN (Reason: nightmares/PTSD)
sumatriptan succinate 25 mg tablet
25 mg PO PRN PRN (Reason: migraine)
cyanocobalamin (vitamin B-12) 1,000 mcg Tablet
1,000 mcg PO DAILY
albuterol sulfate 90 mcg/actuation HFA aerosol inhaler
2 puff INHALATION R Q4HPRN PRN (Reason: sob/wheezing)
cholecalciferol (vitamin D3) 25 mcg (1,000 unit) Tablet
25 mcg PO DAILY
ibuprofen 800 mg tablet
800 mg PO Q6H PRN (Reason: Pain) Qty: 30 0RF
cyclobenzaprine 5 mg tablet
5 mg PO TID PRN (Reason: muscle spasm) Qty: 20 0RF
sulfamethoxazole-trimethoprim [Bactrim DS] 800-160 mg tablet
1 tab PO Q12H 5 Days Qty: 10 0RF
methylprednisolone [Medrol (Nilson)] 4 mg tablets,dose pack
See Rx Instructions .ROUTE .COMPLEX Qty: 21 0RF
Rx Instructions:
orally per package directions
oxycodone 5 mg tablet
5 mg PO Q8H PRN (Reason: Pain) Qty: 8 0RF
Referrals:
Dena Guerrero CRNP [Family Provider] -
Morgan Son MD [Active] - (Ortho - Call for appointment)
Interventions
Interventions:
*Risk Screen - Suicide Last Done: 10/15/24 12:46
*General Assessment Last Done: 10/15/24 12:46
*Neglect/Abuse Screening Last Done: 10/15/24 12:46
*ED- Fall Risk Assessment Last Done: 10/15/24 14:33
*ED COVID-19 Vaccine History Last Done: 10/15/24 12:46
*Nursing Disposition Last Done: 10/15/24 18:23
ED-Musculoskeletal Assessment Last Done: 10/15/24 14:33
Discharge Date and Time
Discharge Date/Time: 10/15/24 18:24
Print Language: ERITREAN
[2024-10-15] MEDS: TYLENOL 1000 MG PO (15:28)
[2024-10-15] MEDS: VALIUM 5 MG PO (15:28)
[2024-10-15 15:34] VITALS: BMI 58.3
[2024-10-15 17:19] LABS: Urine Albumin 1+ (Neg - Trace); Urine Bilirubin Negative (Negative); Urine Character Clear (Clear); Urine Color Yellow; Urine Glucose Negative (Negative); Urine Ketone Negative (Negative); Urine Leukocyte 2+ (Negative); Urine Nitrite Negative (Negative); Urine Occult Blood Negative (Negative); Urine Urobilinogen Negative (Neg - 1+)
[2024-10-15 17:46] VITALS: BP 121/76
[2024-10-15 17:46] LABS: Urine Calcium Oxalate Crystals Present; Urine Mucus Moderate; Urine Squamous Cell >30 /LPF (Few)
[2024-10-15 17:47] LABS: Urine Bacteria Moderate (Negative); Urine Red Blood Cell 0-2 /HPF (0-2)
== END 2024-10-15 18:24 | disposition home or self-care (01) ==
LOC: EMR 12:43
PROVIDERS: Physician Assistant Medical; EMERGENCY PHYSICIAN Emergency Medicine; FAMILY PHYSICIAN Nurse Practitioner
DX: M54.50 Low back pain, unspecified (principal)
CPT/HCPCS: 99285; 96372; 72131; 74176; 81003; 81015; 87086; 87088